=== PATIENT | male | born 1955 | race Asian ===

== ENCOUNTER 2020-05-07 13:48 | Outpatient (REF) | payer MEDICARE, SELFPAY | END 2020-05-07 13:49 | disposition home or self-care (01) | LOC: HO.LAB 13:48 | PROVIDERS: Visit Provider Internal Medicine | DX: Z20.822 Contact with and (suspected) exposure to COVID-19 (principal) | CPT/HCPCS: 36415; C9803; U0003 ==

== ENCOUNTER 2020-11-17 08:42 | Outpatient (REF) | payer MEDICARE, MEDICAID, SELFPAY ==
[2020-11-17 13:09] LABS: Prostate Specific Antigen 0.38 ng/mL (<0.05-4.0)
== END 2020-11-17 08:43 | disposition home or self-care (01) ==
LOC: HO.LAB 08:42
PROVIDERS: PCP Family Medicine; Visit Provider Family Medicine
DX: Z12.5 Encounter for screening for malignant neoplasm of prostate (principal)
CPT/HCPCS: 36415; 84153

== ENCOUNTER 2020-12-28 11:31 | Outpatient (REF) | payer MEDICARE, MEDICAID, SELFPAY ==
[2020-12-28 13:59] LABS: MANUAL DIFF FLAG NO
[2020-12-28 14:07] LABS: Basophils Absolute Auto 0.1 X10*3/uL (0.0-0.2); Eosinophils Absolute Auto 0.2 X10*3/uL (0.0-0.4); Eosinophils Percent Auto 2.7 % (0-4); Hemoglobin 15.1 g/dl (14.0-18.0); Imm Gran Abs Auto 0.04 X10*3/uL (0.00-0.03); Imm Gran Pct Auto 0.5 % (0.0-0.4); Lymphocytes Absolute Auto 3.5 X10*3/uL (1.2-4.9); Lymphocytes Percent Auto 39.8 % (20-40); Mean Corpuscular HGB Conc 32.1 g/dl (31.0-36.0); Mean Corpuscular Hemoglobin 24.4 pg (27.0-33.0); Mean Corpuscular Volume 75.8 fL (80-98); Monocytes Absolute Auto 0.7 X10*3/uL (0.1-1.2); Monocytes Percent Auto 8.4 % (2-11); Neutrophils Absolute Auto 4.1 X10*3/uL (2.0-8.3); Neutrophils Percent Auto 47.6 % (45-73); Platelet Count 171 X10*3/uL (160-400); Red Cell Distribution Width 17.8 % (11.0-16.0); White Blood Count 8.7 X10*3/uL (4.8-10.8)
[2020-12-28 14:10] LABS: INTERNATIONAL NORM RATIO 1.1 (0.9-1.1); Prothrombin Time 12.9 SEC (9.9-13.0)
[2020-12-28 14:39] LABS: Alanine Aminotransferase 50 U/L (0-40); Alkaline Phosphatase 91 U/L (39-117); Anion Gap 14 (12-20); Aspartate Amino Transferase 68 U/L (5-37); Bilirubin Total 1.1 mg/dL (0.0-1.0); Blood Urea Nitrogen 10 mg/dL (9-16); Calcium 9.7 mg/dL (8.4-10.2); Carbon Dioxide 24 mmol/L (22-29); Chloride 106 mmol/L (96-108); Estimated Glomerular Filt Rate > 60; Glucose Random 89 mg/dL (60-115); Iron 42 mcg/dL (45-160); Percent Iron Saturation 9 % (15-50); Potassium 4.9 mmol/L (3.3-5.1); Sodium 139 mmol/L (135-145); Total Iron Binding Capacity 462 mcg/dL (228-428); Total Protein 8.4 g/dL (6.5-8.0); Unsaturated Iron Binding 420 ug/dL
[2020-12-28 14:42] LABS: Ferritin 51 ng/mL (20-250)
[2020-12-29 09:03] LABS: HBS Num1 5.39 mIU/mL (0-7.99); HBc Num1 9.18 S/CO (0.00-0.79); HBsAGNum1 0.18 S/CO (0.00-0.99); Hepatitis B Surface Antigen Negative (Negative); ~HepC Num1 0.71 S/CO (0.00-0.79); ~Hepatitis B Surface Antibody NONREACTIVE (Nonreactive); ~Hepatitis C Antibody Nonreactive (Nonreactive)
[2020-12-29 11:34] LABS: HBc Num2 9.01 S/CO; HBc Num3 9.34 S/CO; Hepatitis B Core Antibody Reactive (Nonreactive)
[2020-12-29 13:35] LABS: Alpha 1 Anti-trypsin 139 mg/dL (83-199)
[2020-12-29 21:56] LABS: Anti Nuclear Antibody Screen POSITIVE (NEGATIVE)
[2020-12-30 19:22] LABS: Hepatitis B Core Antibody IgM NON-REACTIVE (NON-REACTIVE)
[2020-12-30 23:20] LABS: Immunoglobulin G Subclass 1 824 mg/dL (382-929); Immunoglobulin G Subclass 2 827 mg/dL (241-700); Immunoglobulin G Subclass 3 151 mg/dL (22-178); Immunoglobulin G Subclass 4 128.6 mg/dL (4-86); Immunoglobulin G Total 2005 mg/dL (600-1540)
[2020-12-31 16:41] LABS: Zinc 74 mcg/dL (60-130)
[2021-01-01 08:09] LABS: Hepatitis A Antibody IgM 0.39 Index (0-0.79); ~Hepatitis A Antibody IgM Nonreactive (Nonreactive)
[2021-01-01 15:11] LABS: Transglutaminase Ab IgG 6 U/mL; Transglutaminase IgA 1 U/mL
[2021-01-03 16:16] LABS: Smooth Muscle Antibody 23 U (<20)
[2021-01-05 10:31] LABS: Soluble Liver Ag Autoantibody <20.1 U (0.0-20.0)
[2021-01-07 13:36] LABS: Mitochondrial Antibodies NEGATIVE (NEGATIVE)
== END 2020-12-28 11:32 | disposition home or self-care (01) ==
LOC: HO.LAB 11:31
PROVIDERS: Referring Provider Family Medicine; Visit Provider Internal Medicine Gastroenterology
DX: K74.60 Unspecified cirrhosis of liver (principal); R79.82 Elevated C-reactive protein (CRP); G89.29 Other chronic pain; R10.33 Periumbilical pain; K52.839 Microscopic colitis, unspecified; K75.81 Nonalcoholic steatohepatitis (NASH)
CPT/HCPCS: 36415; 80053; 82103; 82306; 82728; 82784; 83516; 83520; 83540; 84630; 85025; 85610; 86038; 86039; 86255; 86256; 86704; 86705; 86706; 86709; 86803; 87340; 99202

== ENCOUNTER 2021-01-13 09:05 | Outpatient (REF) | payer MEDICARE, MEDICAID, SELFPAY ==
--- NOTE | ~2021-01-13 | US_ITS ---
EXAMINATION: US COMPLETE ABDOMEN WITH LIVER ELASTOGRAPHY CLINICAL INFORMATION: Cirrhosis. COMPARISON: None. TECHNIQUE: Real-time imaging of the abdominal viscera. Noninvasive ultrasound liver fibrosis assessment is performed using Martin ElastPQ point quantification shear wave elastography (pSWE) with a C5-2 MHz transducer. Multiple elastography samples are obtained. FINDINGS: PANCREAS: The visualized pancreatic head and body are heterogeneous in appearance. The remainder of the pancreas is obscured from visualization by the overlying bowel gas. The tail of the pancreas is obscured by overlying gas. ABDOMINAL AORTA: The proximal, middle, and distal aortic segments are normal in caliber. INFERIOR VENA CAVA: Visualized portions are normal. LIVER: The liver is normal size with irregular borders and coarse heterogeneous echotexture. No focal lesion or intrahepatic biliary duct dilatation. The right lobe measures 13.9 cm in length. The left lobe measures 12.2 cm in length. There is no focal lesion seen. Portal flow is antegrade. Shear wave liver elastography median stiffness is 1.69 m/s (reference: normal median stiffness is 1.3 m/s or less). IQR/median stiffness to assess sampling precision is 0.13 (reference: good quality data set is IQR/median stiffness of 0.15 or less). GALLBLADDER: There is sludge seen within the fundus. The gallbladder is physiologically distended without evidence of stones, sludge, polyps, wall thickening, or pericholecystic fluid. COMMON BILE DUCT: Normal in caliber measuring 0.36 cm in diameter. RIGHT KIDNEY: Normal. No hydronephrosis. No renal calculi or focal parenchymal lesions. The kidney measures 9.8 cm in maximum dimension. LEFT KIDNEY: Normal. No hydronephrosis. No renal calculi or focal parenchymal lesions. The kidney measures 9.7 cm in maximum dimension. SPLEEN: Normal. The spleen measures 9.8 cm in maximum dimension. FREE FLUID: None. US/US abdomen comp w elastography IMPRESSION: 1. Heterogeneous appearance of the pancreas without any focal lesion. The tail is not visualized. 2. Irregular coarse echotexture of liver. 3. Liver elastography: Median stiffness measures 1.69. This corresponds to cACLD ruled out. REFERENCE: Society of Radiologists in Ultrasound Liver Stiffness Thresholds (2019): LIVER STIFFNESS THRESHOLDS: *Liver Stiffness equal or less than 1.3 m/s: High probability of being normal. *Liver Stiffness less than 1.7 m/s: In the absence of other known clinical signs, rules out compensated advanced chronic liver disease. *Liver Stiffness 1.7-2.1 m/s: Suggestive of compensated advanced chronic liver disease but need further test for confirmation. *Liver Stiffness over 2.1 m/s: Rules in compensated advanced chronic liver disease. *Liver Stiffness over 2.4 m/s: Suggestive of clinically significant portal hypertension. QUALITY OF DATA SET: *IQR/Median value equal or less than 0.15 implies a quality data set. *IQR/Median value over 0.15 implies a poor quality data set. SIGNIFICANT CHANGE FROM PRIOR EXAM: Significant change if liver stiffness measurement is 10% or greater from prior exam. OTHER CONSIDERATIONS: The stage of liver fibrosis may be overestimated in the setting of acute hepatitis, liver inflammation, elevated liver function tests, hepatic vascular congestion, obstructive cholestasis, non-fasting state, and infiltrative diseases such as amyloidosis and lymphoma. In some patients with NAFLD, the liver stiffness thresholds for compensated advanced chronic liver disease may be lower. In causes other than viral hepatitis and NAFLD, liver stiffness thresholds are not well established.
== END 2021-01-13 09:06 | disposition home or self-care (01) ==
LOC: HO.US 09:05
PROVIDERS: PCP Nurse Practitioner Family; Visit Provider Family Medicine
DX: K70.30 Alcoholic cirrhosis of liver without ascites (principal)
CPT/HCPCS: 76705; 76981

== ENCOUNTER 2021-01-27 | Outpatient (REF) | payer MEDICARE, MEDICAID, SELFPAY ==
[2021-01-27 13:17] LABS: FIT Int Ctl YES
[2021-01-27 13:18] LABS: FIT2 NEGATIVE (NEGATIVE)
== END 2021-01-27 00:01 | disposition home or self-care (01) ==
LOC: HO.LNP
PROVIDERS: Visit Provider Internal Medicine Gastroenterology
DX: Z12.11 Encounter for screening for malignant neoplasm of colon (principal)
CPT/HCPCS: 82274

== ENCOUNTER 2021-08-27 11:51 | Day surgery (SDC) | payer MEDICARE, MEDICAID, SELFPAY ==
--- NOTE | 2021-08-26 12:20 | HO.ANESPROP2 ---
Documented by User: Maddie Lainez NP 08/26/21 12:24 HPI - Anesthesia Eval Consult details Narrative: 65yo M for Upper Endoscopy ETOH cirrhosis with current ETOH Cx'd 02/2021 for cough, fever PMFSH Active Problems Active Problems: All Active Problems (Updated 03/01/21 @ 15:47 by Eliza Rasmussen, PABLO) Cirrhosis (Acute) Colon cancer screening (Acute) Past Medical History Medical History (Updated 08/27/21 @ 12:50 by Brenda Dobbins RN) Alcohol dependence Cataract (lens) fragments in eye following cataract surgery, bilateral Cirrhosis Hx of ascites Surgical History Surgical History (Updated 03/02/21 @ 13:02 by Eliza Rasmussen RN) Surgical history unknown Social History Social History Patient Tobacco Use Status: Former Tobacco user Are you DNR?: No Advance Directives: Yes Advance Directives on File: Yes Advance Directives Date on File: 06/07/19 Recently lost weight without trying: No Nutrition Risks: No Nutritional Risk Meds Allergies Allergy/AdvReac Type Severity Reaction Status Date / Time No Known Allergies Allergy Unverified 08/23/21 13:06 [No Known Allergies*] Exam Exam Date and Time: August 26, 2021 1220 Pertinent Lab Results Pertinent Lab Results: Laboratory Tests 12/28/20 12/28/20 13:15 13:15 WBC 8.7 Hgb 15.1 Hct 47.0 Plt Count 171 Sodium 139 Potassium 4.9 Chloride 106 Carbon Dioxide 24 BUN 10 Creatinine 0.98 Assessment and Plan Assessment Anesthesia Assessment: Chart Reviewed Documented by User: Sabrina Cronin MD 08/27/21 13:07 PMFSH Past Medical History Medical History (Updated 08/27/21 @ 12:50 by Brenda Dobbins RN) Alcohol dependence Cataract (lens) fragments in eye following cataract surgery, bilateral Cirrhosis Hx of ascites Family History Family history of problems with anesthesia: No Surgical History Surgical History (Updated 03/02/21 @ 13:02 by Eliza Rasmussen RN) Surgical history unknown History of Problems with Anesthesia: No Social History Social History Patient Tobacco Use Status: Former Tobacco user Are you DNR?: No Advance Directives: Yes Advance Directives on File: Yes Advance Directives Date on File: 06/07/19 Recently lost weight without trying: No Nutrition Risks: No Nutritional Risk Meds Allergies Allergy/AdvReac Type Severity Reaction Status Date / Time No Known Allergies Allergy Unverified 08/23/21 13:06 [No Known Allergies*] Exam Airway Mallampati Class: II (Missing multiole teeth nothing loose) TM Dist: >3cm Neck ROM: Full Heart: rrr Lungs: cta Assessment and Plan Assessment Anesthesia Assessment: Anesthesia Plan Discussed and Chart Reviewed Final Anesthetic Review Family History of Problems with Anesthesia: No History of Problems with Anesthesia: No NPO: Yes ASA Class: III Final Preanesthetic Review: No Changes in Pt Med Stat, Meds/Allgs Chart Reviewed and Consent Obtained/Reviewed Patient Risk: Intermediate Procedure Risk: Intermediate Anesthetic Plan Anesthetic Plan: MAC: Disposition: Standard PACU
[2021-08-27] VITALS (7 sets, daily range): BP systolic 129–190; BP diastolic 83–115; PULSE 77–91; RESP 16–18; TEMP 36.6–37; O2SAT 95–97; BMI 21.1
--- NOTE | 2021-08-27 13:02 | MHC.SHP ---
Pre-Procedural Eval Section A Date of Service: 08/27/21 The patient is an INPATIENT: No The History & Physical has been completed within 30 days and I have reviewed it.: No Section B Chief Complaint: Cirrhosis, screen for varices Details of Present Illness: Cirrhosis - screen for varices Relevant Family History (Specify if Yes): No Relevant Social History: Tobacco Use (Former smoker) Present Medications: see Short Stay Collaborative assessment Medical History: Significant History (Alcohol dependence, Cirrhosis Hx of ascites) History of Previous Operations: No relevant previous surgery Allergies: Allergies Allergy/AdvReac Type Severity Reaction Status Date / Time No Known Allergies Allergy Unverified 08/23/21 13:06 [No Known Allergies*] Review of Systems Sugical H&P ROS: Negative: Constitution, Cardiovascular, Respiratory and Gastrointestinal Exam Surgical H&P Exam: Normal: Heart, Normal: Lungs, Normal: Extremities and Normal: Abdomen Plan Diagnosis/Plan: Unchanged I have reviewed the history and physical and performed a pertinent physical examination on my patient. No changes have occurred unless specified.
[2021-08-27] MEDS: Lactated Ringers 1,000 ML 100 ML IVCONT (13:27)
--- NOTE | 2021-08-27 14:15 | W.PM.OPN ---
Operative Note Operative Note Date of Service: 08/27/21 Narrative: Pre-op diagnosis: Cirrhosis - screen for varices Post-op diagnosis:?other (Esophageal varix, portal gastropathy, gastritis) Procedure: FLEXIBLE TRANSORAL UPPER GASTROINTESTINAL ENDOSCOPY WITH BIOPSIES Consent:?Indications for the procedure and potential complications of bleeding, perforation, reaction to medications and missed diagnosis were discussed with the patient and informed consent was obtained. Instrument:?Olympus GIF H 190 mid size upper endoscope Monitoring: Vital signs and clinical assessment, continuous EKG monitoring, Pulse oximetry, Carbon Dioxide monitoring and blood pressure monitoring were done throughout the procedure. Procedure:?The patient was placed in the left lateral decubitis position and pre-procedure medications were administered and a bite block was placed. The endoscope was inserted into the mouth and advanced under direct vision to the third part of duodenum. A careful inspection was made as the upper endoscope was withdrawn including a retroflexed examination of the proximal stomach; Findings and interventions are described below. Findings: Larynx:? Normal Esophagus: A single column grade 1 varix from 35 to 40 cms without high risk stigmata for bleeding. GE junction at 40 cms. No esophagitis or Craven's. Stomach: Mild portal hypertensive gastropathy in the fundus and body of the stomach. Mild gastric antral erythema - biopsies were obtained. No gastric varices and grade 2 flap valve on retroflexed examination of the cardia. Duodenum: Normal bulb and descending duodenum Intervention: Biopsies as noted above Impression and Post Procedure Diagnosis: Endoscopy Findings: ESOPHAGUS:? A single column grade 1 varix from 35 to 40 cms without high risk stigmata for bleeding. GE junction at 40 cms. No esophagitis or Craven's. STOMACH: Mild portal hypertensive gastropathy in the fundus and body of the stomach. Mild gastric antral erythema - biopsies were obtained. No gastric varices and grade 2 flap valve on retroflexed examination of the cardia. Plan: Await pathology results Patient has an appointment on 09/17/21 in the [facility] with Dr Cruz. Repeat EGD in 1 year?for FU of varices. Above findings were reviewed with the patient and Esophageal Varices handout was given in the discharge area Surgeon: Dionisio Sexton MD Anesthesia:?MAC (Ag[address]a [address],? 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 gastric antrum, R/O H. pylori) Condition:?stable Disposition:?PACU
== END 2021-08-27 16:00 | disposition home or self-care (01) ==
PROVIDERS: PCP Nurse Practitioner Family; Visit Provider Internal Medicine Gastroenterology
PROC: 0DJ08ZZ Inspection of Upper Intestinal Tract, Via Natural or Artificial Opening Endoscopic (ICD-10-PCS; CPT 43235; principal; 2021-08-27 13:40)
DX: K74.60 Unspecified cirrhosis of liver (principal); F10.20 Alcohol dependence, uncomplicated; I85.00 Esophageal varices without bleeding; K76.6 Portal hypertension; K29.50 Unspecified chronic gastritis without bleeding; B96.81 Helicobacter pylori [H. pylori] as the cause of diseases classified elsewhere; Z87.891 Personal history of nicotine dependence
CPT/HCPCS: 43239; 88305; 88342; J2250

== ENCOUNTER → 2021-09-17 10:44 | Outpatient (BNVA) | payer MEDICARE, MEDICAID, SELFPAY | PROVIDERS: PCP Nurse Practitioner Family; Visit Provider Internal Medicine Gastroenterology | DX: K74.60 Unspecified cirrhosis of liver (principal); Z98.890 Other specified postprocedural states | CPT/HCPCS: 99212 ==

== ENCOUNTER 2022-01-31 10:21 | Outpatient (REF) | payer MEDICARE, MEDICAID, SELFPAY ==
[2022-01-31 11:32] LABS: MANUAL DIFF FLAG NO
[2022-01-31 12:06] LABS: Basophils Absolute Auto 0.1 X10*3/uL (0.0-0.2); Basophils Percent Auto 2.6 % (0-2); Eosinophils Absolute Auto 0.3 X10*3/uL (0.0-0.4); Eosinophils Percent Auto 6.6 % (0-4); Hematocrit 50.9 % (42.0-52.0); Hemoglobin 16.5 g/dl (14.0-18.0); Imm Gran Abs Auto 0.01 X10*3/uL (0.00-0.03); Imm Gran Pct Auto 0.2 % (0.0-0.4); Lymphocytes Absolute Auto 1.8 X10*3/uL (1.2-4.9); Lymphocytes Percent Auto 41.2 % (20-40); Mean Corpuscular HGB Conc 32.4 g/dl (31.0-36.0); Mean Corpuscular Hemoglobin 25.5 pg (27.0-33.0); Mean Corpuscular Volume 78.7 fL (80.0-98.0); Mean Platelet Volume 10.4 fL (9.4-12.4); Monocytes Absolute Auto 0.5 X10*3/uL (0.1-1.2); Monocytes Percent Auto 12.2 % (2-11); Neutrophils Absolute Auto 1.6 x10*3/uL (2.0-8.3); Neutrophils Percent Auto 37.2 % (45-73); Platelet Count 159 X10*3/uL (160-400); Red Blood Count 6.47 X10*6/uL (4.60-5.80); Red Cell Distribution Width 14.2 % (11.0-16.0); White Blood Count 4.3 X10*3/uL (4.8-10.8)
[2022-01-31 12:53] LABS: Ferritin 96 ng/mL (20-250)
[2022-01-31 13:47] LABS: Folate 4.9 ng/mL (> or = 4.0); Vitamin B12 1172 pg/mL (200-900)
[2022-02-02 12:36] LABS: Immunoglobulin G 2246 mg/dL (600-1540)
[2022-02-02 15:48] LABS: Anti Nuclear Antibody Screen NEGATIVE (NEGATIVE)
[2022-02-03 23:57] LABS: Soluble Liver Ag Autoantibody <20.1 U (0.0-20.0)
[2022-02-04 13:06] LABS: Smooth Muscle Antibody <20 U (<20)
[2022-02-04 14:21] LABS: Vitamin A 20 mcg/dL (38-98)
[2022-02-04 17:22] LABS: Nicotinamide 29 ng/mL; Vit B3 - Nicotinic Acid <20 ng/mL
[2022-02-05 17:07] LABS: Vitamin B5 (Pantothenic Acid) <40 ng/mL (<275)
[2022-02-09 11:54] LABS: Vitamin B1 67 nmol/L (8-30)
[2022-02-11 11:16] LABS: Vitamin B6 22.3 ng/mL (2.1-21.7)
== END 2022-01-31 10:22 | disposition home or self-care (01) ==
LOC: HO.LAB 10:21
PROVIDERS: PCP Internal Medicine; Visit Provider Internal Medicine Gastroenterology
DX: K74.60 Unspecified cirrhosis of liver (principal); K52.839 Microscopic colitis, unspecified; K75.81 Nonalcoholic steatohepatitis (NASH); R79.82 Elevated C-reactive protein (CRP); F10.20 Alcohol dependence, uncomplicated; Z71.41 Alcohol abuse counseling and surveillance of alcoholic
CPT/HCPCS: 36415; 82607; 82728; 82746; 82784; 83520; 84207; 84425; 84590; 84591; 85025; 86015; 86038; 86039; 99212

== ENCOUNTER 2022-02-18 14:58 | Outpatient (REF) | payer MEDICARE, MEDICAID, SELFPAY ==
[2022-02-19 15:03] LABS: H Pylori Breath Test Negative (Negative)
== END 2022-02-18 14:59 | disposition home or self-care (01) ==
LOC: HO.LNP 14:58
PROVIDERS: Visit Provider Internal Medicine Gastroenterology
DX: R10.9 Unspecified abdominal pain (principal); A04.8 Other specified bacterial intestinal infections
CPT/HCPCS: 83013; Q3014

== ENCOUNTER 2022-10-03 19:40 | Emergency (ER) | payer MEDICARE, MEDICAID, SELFPAY ==
--- NOTE | ~2022-10-03 | CT_ITS ---
EXAMINATION: CT ABDOMEN AND PELVIS WITHOUT CONTRAST CLINICAL INFORMATION: Right upper quadrant/flank pain. COMPARISON: None available. TECHNIQUE: Multidetector volumetric imaging was performed from the superior aspect of the liver through the pubic symphysis. Sagittal and coronal reformatted images were obtained on the technologist's workstation. This CT examination was performed using dose optimization techniques as appropriate, variously including the following: *Automated exposure control *Adjustment of mA and/or kV according to patient size (this includes techniques or standardized protocols for targeted exams where dose is matched to indication/reason for exam; i.e. extremities or head) *Use of iterative reconstruction technique DLP: 376 mGy-cm FINDINGS: LUNG BASES: The visualized lung bases are unremarkable. LIVER, GALLBLADDER, AND BILIARY TREE: The liver is small, lobulated surface and heterogeneous density. No focal lesion or intrahepatic ductal dilatation seen. The gallbladder is distended but small radiopaque cyst dependent stones. No wall thickening seen. No intrahepatic or extrahepatic ductal dilatation. There are numerous varicose veins at the splenic hilum. PANCREAS: Unremarkable. SPLEEN: Unremarkable. ADRENAL GLANDS: Unremarkable. KIDNEYS AND URETERS: The kidneys are normal in size, shape, and attenuation. No hydronephrosis, hydroureter, or calculi seen. No perinephric stranding. BLADDER: Unremarkable. GASTROINTESTINAL TRACT: There is scattered stool and gas seen throughout the colon without any significant distention. The small bowel loops are normal caliber. Appendix is normal caliber. ABDOMINAL WALL: A very small umbilical hernia containing fat is noted. LYMPH NODES: Normal. VASCULAR: There is mild atherosclerotic calcification of abdominal aorta without aneurysmal dilatation. PELVIC VISCERA: Unremarkable. OSSEOUS STRUCTURES: No aggressive lytic or sclerotic process seen. Mildly indistinct changes with vacuum disc phenomena L5-S1 disc level. No aggressive lytic or sclerotic process seen. CT/CT abdomen pelvis wo IV con IMPRESSION: Distended gallbladder with small radiopaque dependent gallstones but no wall thickening. If patient has right upper quadrant pain a HIDA scan can be performed to evaluate acalculous cholecystitis. Cirrhosis with likely portal hypertension with collateral vessels in the splenic hilum. Mild constipation. Fleischner guidelines were followed.
--- NOTE | ~2022-10-03 | US_ITS ---
EXAMINATION: US ABDOMEN LIMITED CLINICAL INFORMATION: Abdominal pain with history of cirrhosis. COMPARISON: Ultrasound abdomen 01/13/[address] abdomen pelvis 05/31/2019 TECHNIQUE: Real-time imaging of the right upper quadrant abdominal viscera. FINDINGS: PANCREAS: Normal. LIVER: The liver is normal in size. The liver contour is normal. Liver echogenicity is coarse increased consistent with hepatic steatosis as has been seen in the past. No focal hepatic lesion. There is no intrahepatic biliary duct dilatation seen. GALLBLADDER: The gallbladder is distended at 13 cm but otherwise unremarkable without evidence of stones, sludge, polyps, wall thickening or pericholecystic fluid. COMMON BILE DUCT: Normal in caliber measuring 0.5 cm in diameter. RIGHT KIDNEY: No hydronephrosis. No renal calculi or focal parenchymal lesions. The kidney measures 10.9 cm in maximum dimension. FREE FLUID: None. US/US abdomen limited IMPRESSION: Hepatic steatosis.
--- NOTE | 2022-10-03 20:19 | ECG_ITS ---
Test Reason : ABDOMINAL PAIN Blood Pressure : / mmHG Vent. Rate : 059 BPM Atrial Rate : 059 BPM P-R Int : 182 ms QRS Dur : 088 ms QT Int : 422 ms P-R-T Axes : 049 041 043 degrees QTc Int : 417 ms Sinus bradycardia Otherwise normal ECG When compared with ECG of 02-SEP-2019 21:44, Vent. rate has decreased BY [address] no longer depressed in Anterior leads T wave inversion no longer evident in Inferior leads T wave inversion no longer evident in Anterior leads Referred By: Freddy Kline Electronically Signed By:RUPERT HAMEED
--- NOTE | 2022-10-03 20:21 | ED.GENADULT ---
HPI - General Adult General Chief complaint: Abdominal Pain Stated complaint: r abd pain,etoh use per ems Time Seen by Provider: 10/03/22 21:06 Related Data Home Medications Medication Instructions Recorded Confirmed pantoprazole 40 mg tablet,delayed 40 mg PO DAILY 01/31/22 release thiamine HCl (vitamin B1) 100 mg 100 mg PO DAILY 01/31/22 tablet (Vitamin B-1) Previous Rx's Medication Instructions Recorded oxycodone 5 mg tablet 5 mg PO BID PRN pain #7 tabs 10/04/22 Allergies Allergy/AdvReac Type Severity Reaction Status Date / Time No Known Allergies Allergy Unverified 01/31/22 10:27 [No Known Allergies*] [facility] Past Medical History Medical History Alcohol dependence Cataract (lens) fragments in eye following cataract surgery, bilateral Cirrhosis Hx of ascites Surgical History History of esophagogastroduodenoscopy (EGD) Surgical history unknown Social History Social History Alcohol intake: current Alcohol intake frequency: 3 or more drinks per day Alcohol type: beer Patient Tobacco Use Status: Former Tobacco user Smoked in Last 30 Days: No Use of substances other than those prescribed or required for medical reasons: No Advance Directives: No Advance Directives Information Provided: No Advance Directives Date on File: 06/07/19 Physical Exam ED Vital Signs: Vital Signs - 24 hr 10/03/22 20:24 10/03/22 22:28 10/03/22 23:38 Temperature 98.6 F 98.2 F Pulse Rate 62 76 68 Respiratory Rate 20 18 16 Blood Pressure 137/89 163/88 H Pulse Oximetry 100 97 95 Oxygen Delivery Method Room Air Room Air Room Air BMI result Body Mass Index 22.6 Course Course Course Narrative: 66-year-old male with past medical history significant for liver cirrhosis, vitiligo presents for evaluation of upper abdominal pain. Patient follows with Dr. Cruz. He reports significant abdominal pain and abdominal distension Medications Administered Discontinued Medications Generic Name Dose Route Start Last Admin Trade Name Freq PRN Reason Stop Dose Admin Morphine Sulfate 4 mg 10/04/22 00:28 10/04/22 00:42 Morphine Sulfate 4 Mg/Ml Cartridge IVPUSH 10/04/22 00:29 4 mg ONCE ONE Administration Protocol Medical Decision Making Medical Decision Making [facility] Narrative: -patient was given 4 mg of morphine. Patient states that he feels better. -admission was considered for possible HIDA scan. -After discussing the patient and imaging with Dr. Rivera. At this time, no need for HIDA scan, we do not suspect acute cholecystitis. Patient instructed to follow-up with surgery. Also, asked us with patient that if he continues having abdominal pain, anything changes, to return to the emergency room. Admission/Observation Consideration of admission/observation: Escalation of care including admission/observation considered Consult Healthcare Provider Management of the patient was discussed with: Manager Branch Lab Data [facility] Lab Attestation statement: I reviewed the patient's lab results. 10/03/22 20:46 10/03/22 20:46 Labs: Lab Results 10/03/22 10/03/22 10/03/22 Range/Units 20:46 20:46 20:46 WBC 4.5 L (4.8-10.8) X10*3/uL RBC 5.52 (4.60-5.80) X10*6/uL Hgb 14.9 (14.0-18.0) g/dl Hct 44.5 (42.0-52.0) % MCV 80.6 (80.0-98.0) fL MCH 27.0 (27.0-33.0) pg MCHC 33.5 (31.0-36.0) g/dl RDW 14.4 (11.0-16.0) % Plt Count 86 L D (160-400) X10*3/uL MPV 10.3 (9.4-12.4) fL Immature Gran % (Auto) 0.4 (0.0-0.4) % Neut % (Auto) 44.1 L (45-73) % Lymph % (Auto) 33.9 (20-40) % [place] % (Auto) 15.0 H (2-11) % Eos % (Auto) 5.1 H (0-4) % Baso % (Auto) 1.5 (0-2) % Lymph # (Auto) 1.5 (1.2-4.9) X10*3/uL [place] # (Auto) 0.7 (0.1-1.2) X10*3/uL Eos # (Auto) 0.2 (0.0-0.4) X10*3/uL Baso # (Auto) 0.1 (0.0-0.2) X10*3/uL Abs Immat Gran (auto) 0.02 (0.00-0.03) X10*3/uL Absolute Neuts (auto) 2.0 (2.0-8.3) x10*3/uL Absolute Nucleated RBC 0.000 (0.0-0.012) X10*3/uL Nucleated RBC % (auto) 0.0 (0.0-0.2) /100WBC Sodium 139 (135-145) mmol/L Potassium 3.9 D (3.3-5.1) mmol/L Chloride 104 (96-108) mmol/L Carbon Dioxide 20 L (22-29) mmol/L Anion Gap 19 (12-20) BUN 8 L (9-16) mg/dL Creatinine 0.80 (0.5-1.4) mg/dL Estim Creat Clear Calc 79.3 Estimated GFR > 60 Random Glucose 104 (60-115) mg/dL Calcium 9.5 (8.4-10.2) mg/dL Total Bilirubin 1.9 H (0.0-1.0) mg/dL AST 130 H (5-37) U/L ALT 82 H (0-40) U/L Alkaline Phosphatase 65 (39-117) U/L Total Protein 8.4 H (6.5-8.0) g/dL Albumin 3.9 (3.5-5.0) g/dL Lipase 57 (8-78) U/L Ethyl Alcohol 115 mg/dL Radiology Impression Discussion of test interpretation with radiology: I have reviewed the radiologist's reading. Radiologist Impression: FINDINGS: LUNG BASES: The visualized lung bases are unremarkable.? LIVER, GALLBLADDER, AND BILIARY TREE: The liver is small, lobulated surface and heterogeneous density. No focal lesion or intrahepatic ductal dilatation seen. The gallbladder is distended but small radiopaque cyst dependent stones. No wall thickening seen. No intrahepatic or extrahepatic ductal dilatation. There are numerous varicose veins at the splenic hilum. PANCREAS: Unremarkable.? SPLEEN: Unremarkable.? ADRENAL GLANDS: Unremarkable.? KIDNEYS AND URETERS: The kidneys are normal in size, shape, and attenuation. No hydronephrosis, hydroureter, or calculi seen. No perinephric stranding. ? BLADDER: Unremarkable.? GASTROINTESTINAL TRACT: There is scattered stool and gas seen throughout the colon without any significant distention. The small bowel loops are normal caliber. Appendix is normal caliber.? ABDOMINAL WALL: A very small umbilical hernia containing fat is noted. LYMPH NODES: Normal. VASCULAR: There is mild atherosclerotic calcification of abdominal aorta without aneurysmal dilatation. PELVIC VISCERA: Unremarkable.? OSSEOUS STRUCTURES: No aggressive lytic or sclerotic process seen. Mildly indistinct changes with vacuum disc phenomena L5-S1 disc level. No aggressive lytic or sclerotic process seen.? CT/CT abdomen pelvis wo IV con IMPRESSION: Distended gallbladder with small radiopaque dependent gallstones but no wall thickening. If patient has right upper quadrant pain a HIDA scan can be performed to evaluate acalculous cholecystitis. ? Cirrhosis with likely portal hypertension with collateral vessels in the splenic hilum. ? Mild constipation. FINDINGS: PANCREAS: Normal. LIVER: The liver is normal in size. The liver contour is normal. Liver echogenicity is coarse increased consistent with hepatic steatosis as has been seen in the past. No focal hepatic lesion. There is no intrahepatic biliary duct dilatation seen. GALLBLADDER: The gallbladder is distended at 13 cm but otherwise unremarkable without evidence of stones, sludge, polyps, wall thickening or pericholecystic fluid. COMMON BILE DUCT: Normal in caliber measuring 0.5 cm in diameter. RIGHT KIDNEY: No hydronephrosis. No renal calculi or focal parenchymal lesions. The kidney measures 10.9 cm in maximum dimension. FREE FLUID: None. US/US abdomen limited IMPRESSION: Hepatic steatosis ? Discharge Plan Discharge Clinical Impression: Abdominal pain Patient Disposition: Home, Self-Care Instructions: Abdominal Pain (ED) Additional Instructions: Please follow-up with your primary care physician tomorrow. If you have any worsening or new symptoms, please return to the emergency room or call 911 Prescriptions: New oxycodone 5 mg tablet 5 mg PO BID PRN (Reason: pain) Qty: 7 0RF Rx Instructions: Partial Fill upon patient request. No Action pantoprazole 40 mg tablet,delayed release (DR/EC) 40 mg PO DAILY thiamine HCl (vitamin B1) [Vitamin B-1] 100 mg tablet 100 mg PO DAILY
[2022-10-03 20:24] VITALS: BP 117/85; BP 137/89; PULSE 62; PULSE 85; RESP 20; TEMP 37; O2SAT 100; BMI 22.6
[2022-10-03 20:57] LABS: MANUAL DIFF FLAG NO
[2022-10-03 21:08] LABS: Basophils Absolute Auto 0.1 X10*3/uL (0.0-0.2); Basophils Percent Auto 1.5 % (0-2); Eosinophils Absolute Auto 0.2 X10*3/uL (0.0-0.4); Eosinophils Percent Auto 5.1 % (0-4); Hematocrit 44.5 % (42.0-52.0); Hemoglobin 14.9 g/dl (14.0-18.0); Imm Gran Abs Auto 0.02 X10*3/uL (0.00-0.03); Imm Gran Pct Auto 0.4 % (0.0-0.4); Lymphocytes Absolute Auto 1.5 X10*3/uL (1.2-4.9); Lymphocytes Percent Auto 33.9 % (20-40); Mean Corpuscular HGB Conc 33.5 g/dl (31.0-36.0); Mean Corpuscular Volume 80.6 fL (80.0-98.0); Mean Platelet Volume 10.3 fL (9.4-12.4); Monocytes Absolute Auto 0.7 X10*3/uL (0.1-1.2); Neutrophils Percent Auto 44.1 % (45-73); Red Blood Count 5.52 X10*6/uL (4.60-5.80); Red Cell Distribution Width 14.4 % (11.0-16.0); White Blood Count 4.5 X10*3/uL (4.8-10.8)
[2022-10-03 21:13] LABS: Ethanol 115 mg/dL
[2022-10-03 21:15] LABS: Alanine Aminotransferase 82 U/L (0-40); Albumin Level 3.9 g/dL (3.5-5.0); Alkaline Phosphatase 65 U/L (39-117); Anion Gap 19 (12-20); Aspartate Amino Transferase 130 U/L (5-37); Bilirubin Total 1.9 mg/dL (0.0-1.0); Blood Urea Nitrogen 8 mg/dL (9-16); Calcium 9.5 mg/dL (8.4-10.2); Carbon Dioxide 20 mmol/L (22-29); Chloride 104 mmol/L (96-108); Creatinine Clr Calc Pharmacy 79.3; Estimated Glomerular Filt Rate > 60; Glucose Random 104 mg/dL (60-115); Lipase 57 U/L (8-78); Potassium 3.9 mmol/L (3.3-5.1); Sodium 139 mmol/L (135-145); Total Protein 8.4 g/dL (6.5-8.0)
[2022-10-03 21:28] LABS: Platelet Count 86 X10*3/uL (160-400)
[2022-10-03 22:28] VITALS: PULSE 76; RESP 18; O2SAT 97
--- NOTE | 2022-10-03 23:24 | PC.NURSE ---
Assumed care of pt. Pt c/o generalized abdominal pain, pt sts believes it is gas pains, has been passing gas x past hour and sts has had some relief. Pt sts recently began drinking daily after long time without. No other complaints at this time.
[2022-10-03 23:38] VITALS: BP 163/88; PULSE 68; RESP 16; TEMP 36.8; O2SAT 95
--- NOTE | 2022-10-03 23:39 | MHC.EDTECH ---
0000 rounding done ,vitals sign taken ,pt resting quietlt in bed .
[2022-10-04] MEDS: Morphine Sulfate 4 MG/ML CARTRIDGE IVPUSH (00:42)
[2022-10-04 01:19] VITALS: BP 159/89; PULSE 74; RESP 18; O2SAT 97
== END 2022-10-04 01:25 | disposition home or self-care (01) ==
PROVIDERS: Physician Assistant; Emergency Provider Emergency Medicine; PCP Internal Medicine
DX: R10.31 Right lower quadrant pain (principal); R00.1 Bradycardia, unspecified; Z87.891 Personal history of nicotine dependence; Z79.899 Other long term (current) drug therapy
CPT/HCPCS: 36415; 74176; 76705; 80053; 80307; 83690; 85025; 93005; 96374; 99284; 99285; J2270

== ENCOUNTER 2023-06-30 13:46 | Emergency (ER) | payer MEDICARE, MEDICAID, SELFPAY ==
--- NOTE | ~2023-06-30 | XR_ITS ---
EXAMINATION: XR CHEST CLINICAL INFORMATION: Chest pain COMPARISON: Previous chest x-ray August 2019 TECHNIQUE: Frontal view of the chest was obtained. FINDINGS: No significant abnormality is noted involving the heart, lungs, mediastinum, bony thorax or soft tissues. XR/XR chest 1V IMPRESSION: Unremarkable examination.
[2023-06-30 14:06] VITALS: BP 145/87; PULSE 66; RESP 16; TEMP 36.9; O2SAT 94; BMI 20.6
--- NOTE | 2023-06-30 14:37 | ECG_ITS ---
Test Reason : CHEST PAIN Blood Pressure : / mmHG Vent. Rate : 062 BPM Atrial Rate : 062 BPM P-R Int : 196 ms QRS Dur : 088 ms QT Int : 432 ms P-R-T Axes : 027 007 025 degrees QTc Int : 438 ms Normal sinus rhythm Normal ECG When compared with ECG of 03-OCT-2022 20:22, No significant change was found Referred By: Tonie Triana Electronically Signed By:QUOC PENG MD
--- NOTE | 2023-06-30 14:46 | ED_ITS ---
HPI - Chest Pain General Chief Complaint: Chest Pain Stated Complaint: CHEST PAIN Time Seen by Provider: 06/30/23 14:34 History of Present Illness HPI narrative: Patient is a 67-year-old male presents today with having chest pain. The chest pain is mid chest. He drinks on a regular basis. Admits to drinking alcohol earlier today and also yesterday. There is no shortness of breath. There has no diaphoresis. Positive history of smoking quit about 10 years ago. No history of diabetes, high blood pressure, high cholesterol. Never had a heart attack. Patient is from home. No focal weakness. The pain has been fairly constant since this morning. It is not reproducible. It is like burning. It is not associated with ambulation. It is not associated with sitting up. It is made worse with lying down. Patient denies any history of blood clots. No travel history. Not made worse with deep breath. Related Data Home Medications Medication Instructions Recorded Confirmed pantoprazole 40 mg tablet,delayed 40 mg PO DAILY 01/31/22 release thiamine HCl (vitamin B1) 100 mg 100 mg PO DAILY 01/31/22 tablet (Vitamin B-1) Previous Rx's Medication Instructions Recorded oxycodone 5 mg tablet 5 mg PO BID PRN pain #7 tabs 10/04/22 Allergies Allergy/AdvReac Type Severity Reaction Status Date / Time No Known Allergies Allergy Unverified 01/31/22 10:27 [No Known Allergies*] Review of Systems 2 Review of Systems: Positive chest pain Yes all other systems are reviewed and are negative PMFSH Past Medical History Attestation statement: The following information was validated with the patient. Source: unable to obtain Medical History Cataract (lens) fragments in eye following cataract surgery, bilateral Hx of ascites Alcohol dependence Cirrhosis Surgical History History of esophagogastroduodenoscopy (EGD) Surgical history unknown Social History Social History Alcohol intake: current Alcohol intake frequency: 3 or more drinks per day Alcohol type: beer Patient Tobacco Use Status: Former Tobacco user Advance Directives: No Advance Directives Information Provided: Yes Advance Directives Date on File: 06/07/19 Physical Exam 2 Vital Signs: Vital Signs: Last Vital Signs Temp 98.5 F 06/30/23 14:06 Pulse 66 06/30/23 14:06 Resp 16 06/30/23 14:06 BP 145/87 H 06/30/23 14:06 Pulse Ox 94 06/30/23 14:06 BMI result Body Mass Index 20.6 Appearance: Alert. Oriented X3. No acute distress. Eyes: Pupils equal, round and reactive to light. ENT: Pharynx normal. Neck: Normal inspection. Neck supple. No lymph nodes noted. No crepitus CVS: Normal heart rate and rhythm. Pulses normal. Normal S1 and S2 Respiratory: No respiratory distress. Breath sounds normal. No Wheezing. No rales Abdomen: Soft and nontender. No rigidity. No distention. good BS x4 Skin: Skin warm and dry. Normal skin color. Normal skin turgor. Extremities: No lower extremity edema. Neurovascular intact to all extremities. No Lacerations. No Rash Neuro: Oriented X 3. No motor deficit. No sensory deficit. Moving all extermities. No slurred speech Medications Administered Discontinued Medications Generic Name Dose Route Start Last Admin Trade Name Freq PRN Reason Stop Dose Admin Al Hydroxide/Mg Hydroxide 30 ml 06/30/23 14:44 06/30/23 15:45 Magnesium Hydrox/Alum Hydrox 30 Ml Oral.Susp PO 06/30/23 14:45 30 ml ONCE ONE Administration Aspirin 324 mg 06/30/23 14:44 06/30/23 15:44 Aspirin 81 Mg Tab.Chew PO 06/30/23 14:45 324 mg ONCE ONE Administration Medical Decision Making Medical Decision Making [facility] Narrative: Positive chest pain burning mid chest not associated with any shortness of breath. Patient's alcohol level came back at 279. Has a long history of drinking. Patient's chest pain has been ongoing since this morning. First set of troponin is still pending. Patient's electrolytes are otherwise unremarkable hemoglobin is normal. Will get 2 sets of enzymes and monitor patient carefully. Patient's chest x-ray was grossly negative for any acute evidence of pneumonia pneumothorax. My interpretation patient's EKG showed a sinus rhythm heart rate is 75 NE QRS QTC within normal limits is no acute ST segment elevation. In the setting of atypical history, normal EKG it troponin is leg negative x2 sat less likely this is secondary to ACS. Patient's history not consistent with PE. Differential Diagnosis Differential Diagnoses: The differential diagnosis associated with the presentation includes Alcohol intoxication, reflux, ACS, PE Admission/Observation Consideration of admission/observation: Escalation of care including admission/observation considered Lab Data MDM Lab Attestation statement: I reviewed the patient's lab results. 06/30/23 15:33 06/30/23 15:33 Labs: Lab Results 06/30/23 06/30/23 Range/Units 15:25 15:33 WBC 3.3 L (4.8-10.8) X10*3/uL RBC 5.67 (4.60-5.80) X10*6/uL Hgb 15.5 (14.0-18.0) g/dl Hct 45.7 (42.0-52.0) % MCV 80.6 (80.0-98.0) fL MCH 27.3 (27.0-33.0) pg MCHC 33.9 (31.0-36.0) g/dl RDW 14.6 (11.0-16.0) % Plt Count 105 L (160-400) X10*3/uL MPV 9.4 (9.4-12.4) fL Immature Gran % (Auto) 0.3 (0.0-0.4) % Neut % (Auto) 32.2 L (45-73) % Lymph % (Auto) 52.3 H (20-40) % [place] % (Auto) 10.5 (2-11) % Eos % (Auto) 2.5 (0-4) % Baso % (Auto) 2.2 H (0-2) % Lymph # (Auto) 1.7 (1.2-4.9) X10*3/uL [place] # (Auto) 0.3 (0.1-1.2) X10*3/uL Eos # (Auto) 0.1 (0.0-0.4) X10*3/uL Baso # (Auto) 0.1 (0.0-0.2) X10*3/uL Abs Immat Gran (auto) 0.01 (0.00-0.03) X10*3/uL Absolute Neuts (auto) 1.1 L (2.0-8.3) x10*3/uL Absolute Nucleated RBC 0.000 (0.0-0.012) X10*3/uL Nucleated RBC % (auto) 0.0 (0.0-0.2) /100WBC PT 13.2 (11.1-13.3) SEC Whole Blood PT 14.1 H (11.1-13.5) sec INR 1.1 (0.9-1.1) Whole Blood INR 1.2 H (0.9-1.1) Sodium 143 (135-145) mmol/L Potassium 3.8 (3.3-5.1) mmol/L Chloride 108 (96-108) mmol/L Carbon Dioxide 22 (22-29) mmol/L Anion Gap 17 (12-20) BUN 6 L (9-16) mg/dL Creatinine 0.69 (0.5-1.4) mg/dL Estim Creat Clear Calc 82.8 Estimated GFR > 60 Random Glucose 92 (60-115) mg/dL Calcium 8.8 D (8.4-10.2) mg/dL Ethyl Alcohol 279 mg/dL Independent Interpretation I performed an independent interpretation of an: EKG (EKG showed a sinus pattern heart rate is 75 NE QRS QTC within normal limits is no acute ST segment elevation noted.) and Plain X-Ray (Chest x-ray grossly negative for any acute evidence of pneumonia pneumothorax) Radiology Impression Discussion of test interpretation with radiology: I have reviewed the radiologist's reading. External Record Review No significant old records here at [facility] History of smoking history of EtOH Social Determinants Patient?s care significantly limited by Social Determinants of Health including: Problems related to primary support group Discharge Plan Discharge Clinical Impression: Chest pain, Alcohol intoxication Patient Disposition: Still a Patient Instructions: Chest Pain (DC), Alcohol Intoxication (ED) Prescriptions: No Action oxycodone 5 mg tablet 5 mg PO BID PRN (Reason: pain) Qty: 7 0RF Rx Instructions: Partial Fill upon patient request. pantoprazole 40 mg tablet,delayed release (DR/EC) 40 mg PO DAILY thiamine HCl (vitamin B1) [Vitamin B-1] 100 mg tablet 100 mg PO DAILY Referrals: Merrill Campuzano MD [Physician] - 07/03/23 Dorina De Los Santos MD [Primary Care Provider] -
[2023-06-30 15:29] LABS: Prothrombin Time Whole Bld POC 14.1 sec (11.1-13.5); ~PT, ~INR - Anti Coag Clinic 1.2 (0.9-1.1)
[2023-06-30 15:39] LABS: MANUAL DIFF FLAG NO
[2023-06-30] MEDS: Aspirin 81 MG TAB.CHEW 324 MG PO (15:44)
[2023-06-30] MEDS: Magnesium Hydrox/Alum Hydrox 30 ML ORAL.SUSP PO (15:45)
[2023-06-30 15:46] LABS: Basophils Absolute Auto 0.1 X10*3/uL (0.0-0.2); Basophils Percent Auto 2.2 % (0-2); Eosinophils Absolute Auto 0.1 X10*3/uL (0.0-0.4); Eosinophils Percent Auto 2.5 % (0-4); Hematocrit 45.7 % (42.0-52.0); Hemoglobin 15.5 g/dl (14.0-18.0); Imm Gran Abs Auto 0.01 X10*3/uL (0.00-0.03); Imm Gran Pct Auto 0.3 % (0.0-0.4); Lymphocytes Absolute Auto 1.7 X10*3/uL (1.2-4.9); Lymphocytes Percent Auto 52.3 % (20-40); Mean Corpuscular HGB Conc 33.9 g/dl (31.0-36.0); Mean Corpuscular Hemoglobin 27.3 pg (27.0-33.0); Mean Corpuscular Volume 80.6 fL (80.0-98.0); Mean Platelet Volume 9.4 fL (9.4-12.4); Monocytes Absolute Auto 0.3 X10*3/uL (0.1-1.2); Monocytes Percent Auto 10.5 % (2-11); Neutrophils Absolute Auto 1.1 x10*3/uL (2.0-8.3); Neutrophils Percent Auto 32.2 % (45-73); Platelet Count 105 X10*3/uL (160-400); Red Blood Count 5.67 X10*6/uL (4.60-5.80); Red Cell Distribution Width 14.6 % (11.0-16.0); White Blood Count 3.3 X10*3/uL (4.8-10.8)
--- NOTE | 2023-06-30 15:47 | PC.NURSE ---
Resumed care of patient at 1500, pt reporting continued 11/24 CP, Meds given per JUN, p remains on monitor, awaiting lab results at this time
[2023-06-30 15:54] LABS: Ethanol 279 mg/dL
[2023-06-30 15:56] LABS: Anion Gap 17 (12-20); Blood Urea Nitrogen 6 mg/dL (9-16); Calcium 8.8 mg/dL (8.4-10.2); Carbon Dioxide 22 mmol/L (22-29); Chloride 108 mmol/L (96-108); Creatinine Clr Calc Pharmacy 82.8; Estimated Glomerular Filt Rate > 60; Glucose Random 92 mg/dL (60-115); Potassium 3.8 mmol/L (3.3-5.1); Sodium 143 mmol/L (135-145)
[2023-06-30 15:58] LABS: INTERNATIONAL NORM RATIO 1.1 (0.9-1.1); Prothrombin Time 13.2 SEC (11.1-13.3)
[2023-06-30 16:09] LABS: Troponin-I High Sensitivity < 2.7 ng/L (<3.5-35.0)
[2023-06-30 17:49] VITALS: BP 136/84; PULSE 74; RESP 14; TEMP 37; O2SAT 100
== END 2023-06-30 17:50 | disposition home or self-care (01) ==
PROVIDERS: Emergency Provider Emergency Medicine Emergency Medical Services; PCP Internal Medicine
DX: R07.9 Chest pain, unspecified (principal); F10.229 Alcohol dependence with intoxication, unspecified; Y90.8 Blood alcohol level of 240 mg/100 ml or more
CPT/HCPCS: 36415; 71045; 80048; 80307; 84484; 85025; 85610; 93005; 99283; 99285

== ENCOUNTER → 2023-06-30 14:37 | Outpatient (BNV) | payer MEDICARE, MEDICAID, SELFPAY | PROVIDERS: Emergency Provider Emergency Medicine Emergency Medical Services; PCP Internal Medicine; Visit Provider Internal Medicine Cardiovascular Disease | DX: R07.9 Chest pain, unspecified (principal) | CPT/HCPCS: 93010 ==

== ENCOUNTER 2023-08-13 21:23 | Inpatient (IN) | payer MEDICARE, MEDICAID, SELFPAY ==
--- NOTE | ~2023-08-13 | CT_ITS ---
EXAMINATION: HEAD CT WITHOUT CONTRAST CERVICAL SPINE CT WITHOUT CONTRAST CLINICAL INFORMATION: Change in mental status. Found down. Unresponsive. COMPARISON: None. TECHNIQUE: Contiguous axial imaging of the head was performed without the administration of IV contrast. Axial multidetector volumetric images were also performed through the cervical spine without intravenous contrast. Multiplanar reconstructed images in coronal and sagittal orientations were submitted. This CT examination was performed using dose optimization techniques as appropriate, variously including the following: *Automated exposure control *Adjustment of mA and/or kV according to patient size (this includes techniques or standardized protocols for targeted exams where dose is matched to indication/reason for exam; i.e. extremities or head) *Use of iterative reconstruction technique DOSE: 953 mGy-cm FINDINGS: HEAD: There is no evidence of acute intracranial hemorrhage or territorial infarction. No abnormal mass-effect or midline shift. No extra-axial fluid collections. [place] to white matter differentiation is well preserved. The ventricles are normal in size and configuration. There is no abnormal attenuation within the brain parenchyma. Calcific atherosclerosis is present within the cavernous segments of the internal carotid arteries. No acute fracture or malalignment. There is a small 7 mm cystic focus in the skin at the left supraorbital rim which is of uncertain etiology, potentially corresponding to a epidermal inclusion cyst. Soft tissues are otherwise unremarkable. The sinuses and mastoid air cells are clear. CERVICAL SPINE: Vertebral body heights are normal. No fractures of the vertebral bodies or posterior elements. Vertebral alignment is normal. No subluxation. The craniocervical and atlantoaxial articulations are normal. Mild to moderate multilevel degenerative disc disease is present in the cervical spine, most notably at C7-T1, characterized by loss of vertebral disc height, endplate osteophytes, uncovertebral osteophytes. There is moderate severe facet arthropathy on the right at C3-C4. Posterior disc osteophyte complexes produce mild multilevel central canal narrowing. Uncovertebral osteophytes and facet osteophytes contribute to multilevel neural foraminal encroachment, most notably on the right at C3-C4, C5-C6, and C6-C7 and on the left at C4-C5 and C5-C6. No significant paravertebral soft tissue swelling. Cervical soft tissues are unremarkable. Imaged portions of the lung apices are clear. CT/CT cervical spine wo IV con IMPRESSION: 1. No acute intracranial pathology. 2. No acute fracture or malalignment in the cervical spine. 3. Mild to moderate multilevel degenerative spondylosis in the cervical spine with multilevel neural foraminal encroachment
--- NOTE | ~2023-08-13 | CT_ITS ---
EXAMINATION: CT CHEST WITHOUT CONTRAST CT ABDOMEN AND PELVIS WITHOUT CONTRAST CLINICAL INFORMATION: Altered mental status. COMPARISON: CT dated 10/03/2022. TECHNIQUE: Multidetector volumetric imaging was performed from the thoracic inlet through the pubic symphysis without contrast demonstrated. Sagittal and coronal images were reformatted. This CT examination was performed using dose optimization techniques as appropriate, variously including the following: *Automated exposure control *Adjustment of mA and/or kV according to patient size (this includes techniques or standardized protocols for targeted exams where dose is matched to indication/reason for exam; i.e. extremities or head) *Use of iterative reconstruction technique DOSE: 882 mGy-cm FINDINGS: -CHEST- LUNG: Dependent atelectasis is present in the lung bases. No consolidation. No appreciable noncalcified pulmonary nodules. A few calcified granulomas are noted. Central airways are clear. MEDIASTINUM: Atherosclerotic calcifications are present in the coronary arteries. Heart is normal in size. A few calcified mediastinal lymph nodes are noted. No adenopathy. Thoracic aorta is normal in caliber with a few foci of calcific atherosclerosis. Thyroid gland is normal. PERICARDIUM/PLEURA: No significant effusion. No pleural mass or thickening. CHEST WALL/AXILLA: Unremarkable. -ABDOMEN/PELVIS- LIVER, GALLBLADDER, BILIARY TREE: The liver has a nodular contour with relative hypertrophy of the left lobe, consistent with cirrhosis. No hepatomegaly. No focal lesions are identified on this unenhanced study. Biliary ducts are normal in caliber. The gallbladder is unremarkable with no evidence of radiopaque gallstones, gallbladder wall thickening, or obvious pericholecystic inflammatory changes. PANCREAS: Normal; no mass or surrounding fluid. SPLEEN: Normal size. No focal lesion. ADRENAL GLANDS: Normal; no mass. KIDNEYS AND URETERS: The kidneys are normal in size, shape, and attenuation. No hydronephrosis, hydroureter, or calculi seen. No perinephric stranding. BLADDER: Full. Normal bladder wall thickness. GASTROINTESTINAL TRACT: Stomach, small bowel, and colon are normal in caliber. No bowel wall thickening or surrounding inflammatory changes. Appendix is normal. No intraperitoneal free fluid or free air. ABDOMINAL WALL: There is a small fat-containing umbilical hernia. No bowel involvement. VASCULATURE: Aorta is normal in size. Atherosclerotic calcifications are present in the abdominal aorta and iliac arteries. No aneurysmal dilatation. The there is a recanalized periumbilical vein. Sensitivity for portosystemic collaterals is limited without intravenous contrast. LYMPH NODES: No lymphadenopathy. . PELVIC VISCERA: The prostate and seminal vesicles are unremarkable. OSSEUS STRUCTURES: Bilateral L5 pars defects. Mild grade 1 anterolisthesis of L5 on S1. Mild degenerative disc disease in the lumbar spine. No acute fracture or malalignment. Minimal osteoarthritis in the hip joints. Thoracic spine appears relatively well-preserved. CT/CT abdomen pelvis wo IV con IMPRESSION: 1. No acute abnormalities are identified in the chest, abdomen, and pelvis. 2. Hepatic cirrhosis. 3. Small fat-containing umbilical hernia. 4. Bilateral L5 pars defects with grade 1 anterolisthesis of L5 on S1.
[2023-08-13 21:25] VITALS: BP 174/93; PULSE 85; O2SAT 95
[2023-08-13 21:32] VITALS: BP 172/101; PULSE 83; RESP 18; O2SAT 92; BMI 20.8
--- NOTE | 2023-08-13 21:36 | ECG_ITS ---
Test Reason : UNRESPONSIVE Blood Pressure : / mmHG Vent. Rate : 085 BPM Atrial Rate : 085 BPM P-R Int : 202 ms QRS Dur : 090 ms QT Int : 376 ms P-R-T Axes : 023 015 042 degrees QTc Int : 447 ms Normal sinus rhythm Normal ECG When compared with ECG of 30-JUN-2023 15:18, No significant change was found Referred By: Maggie Mcmillan Electronically Signed By:RUPERT HAMEED
--- NOTE | 2023-08-13 21:50 | ED.AMS ---
HPI - Altered Mental Status General Chief Complaint: Weakness Stated Complaint: AMS,DRINKING HEAVY X FEW DAYS, SCLERA ARE JAUNDICE Time Seen by Provider: 08/13/23 21:29 Source: EMS and old records reviewed Mode of arrival: EMS Limitations: altered mental status History of Present Illness HPI narrative: 67 yo male with PMH of cirrhosis, ETOH abuse - EMS was called today by family who reported recent heavy ETOH abuse and patient found down unknown duration of downtime and EMS notes they had a hard time obtaining history. He has striations on his abdomen from cultural treatments at home. Reportedly fell numerous times at home. MD complaint: altered mental status and intoxication Onset (ago): unknown Timing confirmed by: family member Severity: severe Consistency of symptoms: unknown Context: alcohol abuse Associated symptoms: weakness and other (falls) Treatments prior to arrival: other (cervical collar) Related Data Home Medications ?Medication ?Instructions ?Recorded ?Confirmed pantoprazole 40 mg tablet,delayed 40 mg PO DAILY 01/31/22 release thiamine HCl (vitamin B1) 100 mg 100 mg PO DAILY 01/31/22 tablet (Vitamin B-1) Previous Rx's ?Medication ?Instructions ?Recorded oxycodone 5 mg tablet 5 mg PO BID PRN pain #7 tabs 10/04/22 Allergies Allergy/AdvReac Type Severity Reaction Status Date / Time No Known Allergies Allergy Unverified 08/13/23 21:33 [No Known Allergies*] Review of Systems Review of Systems: ROS unable to be obtained due to altered mental status PMFSH Past Medical History Source: old records reviewed Medical History Cataract (lens) fragments in eye following cataract surgery, bilateral Hx of ascites Alcohol dependence Cirrhosis Surgical History History of esophagogastroduodenoscopy (EGD) Surgical history unknown Social History Social History Alcohol intake: current Alcohol intake frequency: 3 or more drinks per day Alcohol type: beer Patient Tobacco Use Status: Former Tobacco user Use of substances other than those prescribed or required for medical reasons: No Advance Directives: No Advance Directives Information Provided: No Advance Directives Date on File: 06/07/19 Do you have a plan to hurt others: No Plan Physical Exam ED Vital Signs: Vital Signs - 24 hr 08/13/23 21:32 08/13/23 22:14 Temperature 98.5 F Pulse Rate 83 90 Respiratory Rate 18 19 Blood Pressure 172/101 H 152/95 H Pulse Oximetry 92 95 Oxygen Delivery Method Room Air Room Air Oxygen Flow Rate 95 BMI result Body Mass Index 20.8 Appearance: Wakes to voice and tactile stimuli on all extremities mild. acute distress. Eyes: Pupils equal, round and reactive to light. ENT: Pharynx normal. Atraumatic Neck: Normal inspection. Neck supple. CVS: Normal heart rate and rhythm. Pulses normal. Respiratory: No respiratory distress. Breath sounds normal. Abdomen: Soft and nontender. linear patterned striations on chest and abdomen Skin: Skin warm and dry. Normal skin color. Diffuse vitiligo Extremities: No lower extremity edema. No trauma noted Neuro: moves all extremities but otherwise cannot participate in exam. Course Course Course Narrative: lactic acidosis due to ETOH abuse and chronic liver disease not infection or severe sepsis Reevaluation(s) Reevaluation #1: 1112pm patient awake and asking when he is going home Medications Administered Discontinued Medications Generic Name Dose Route Start Last Admin Trade Name Freq PRN Reason Stop Dose Admin Magnesium Sulfate 2 gm in 50 mls @ 25 mls/hr 08/13/23 21:36 08/13/23 21:54 Magnesium Sulfate/H2o IV 08/13/23 23:35 25 mls/hr ONCE ONE Administration Thiamine HCl 200 mg/ Sodium 102 mls @ 204 mls/hr 08/13/23 21:36 08/13/23 22:27 Chloride IV 08/13/23 22:05 Infused ONCE ONE Infusion Sodium Chloride 500 mls @ 500 mls/hr 08/13/23 22:15 08/13/23 22:27 Ns IV 08/13/23 23:14 500 mls/hr .Q1H RENY Administration Medical Decision Making Medical Decision Making MDM Narrative: 67 yo male with PMH of cirrhosis, ETOH abuse here with c/o being found down by family after ETOH and repeated falls at home at this time he wakes to voice and tactile stimuli will obtain basic labs, cultures, infl markers, CT scan of head/neck/chest and abdomen for trauma. IV thiamine, magnesium ordered. Ammonia level ordered. Differential Diagnosis Differential Diagnoses: The differential diagnosis associated with the presentation includes intoxication, trauma, lyte disturbance, hepatic encephalopathy, anemia, low Na Admission/Observation Consideration of admission/observation: Escalation of care including admission/observation considered given falls, elevated ammonia from baseline, will need admission for hepatic encephalopathy - recurrent falls and off baseline Consult Healthcare Provider Management of the patient was discussed with: Hospitalist (will admit) Lab Data MDM Lab Attestation statement: I reviewed the patient's lab results. 08/13/23 21:50 08/13/23 21:49 Labs: Lab Results 08/13/23 08/13/23 08/13/23 Range/Units 21:47 21:48 21:49 WBC (4.8-10.8) X10*3/uL RBC (4.60-5.80) X10*6/uL Hgb (14.0-18.0) g/dl Hct (42.0-52.0) % MCV (80.0-98.0) fL MCH (27.0-33.0) pg MCHC (31.0-36.0) g/dl RDW (11.0-16.0) % Plt Count (160-400) X10*3/uL MPV (9.4-12.4) fL Immature Gran % (Auto) (0.0-0.4) % Neut % (Auto) (45-73) % Lymph % (Auto) (20-40) % [place] % (Auto) (2-11) % Eos % (Auto) (0-4) % Baso % (Auto) (0-2) % Lymph # (Auto) (1.2-4.9) X10*3/uL [place] # (Auto) (0.1-1.2) X10*3/uL Eos # (Auto) (0.0-0.4) X10*3/uL Baso # (Auto) (0.0-0.2) X10*3/uL Abs Immat Gran (auto) (0.00-0.03) X10*3/uL Absolute Neuts (auto) (2.0-8.3) x10*3/uL Absolute Nucleated RBC (0.0-0.012) X10*3/uL Nucleated RBC % (auto) (0.0-0.2) /100WBC PT 12.3 (11.1-13.3) SEC INR 1.0 (0.9-1.1) APTT 32.9 (26.0-36.8) SEC VBG pH (7.32-7.43) VBG pCO2 mmHg VBG pO2 mmHg VBG HCO3 (22-26) mmol/L VBG O2 Saturation % VBG Base Excess mmol/L Sodium 141 (135-145) mmol/L Potassium 3.3 (3.3-5.1) mmol/L Chloride 106 (96-108) mmol/L Carbon Dioxide 24 (22-29) mmol/L Anion Gap 14 (12-20) BUN 10 (9-16) mg/dL Creatinine 0.79 (0.5-1.4) mg/dL Estim Creat Clear Calc 73.1 Estimated GFR > 60 Random Glucose 183 H (60-115) mg/dL Lactic Acid 2.4 H* (0.5-2.0) mmol/L Calcium 8.4 (8.4-10.2) mg/dL Magnesium 1.9 (1.6-2.6) mg/dL Total Bilirubin 1.0 (0.0-1.0) mg/dL Direct Bilirubin 0.4 (0.0-0.5) mg/dL AST 124 H (5-37) U/L ALT 80 H (0-40) U/L Alkaline Phosphatase 97 (39-117) U/L Ammonia 71 H (13-55) umol/L Total Creatine Kinase 206 H (38-174) U/L Troponin I High Sens < 2.7 (<3.5-35.0) ng/L B-Natriuretic Peptide < 10 (<100) pg/mL Total Protein 8.1 H (6.5-8.0) g/dL Albumin 3.8 (3.5-5.0) g/dL Lipase 61 (8-78) U/L Procalcitonin 0.02 ng/mL TSH 1.56 (0.32-4.0) uIU/mL Urine Color Urine Appearance Urine pH (5.0-9.0) Ur Specific [place] (1.005-1.025) Urine Protein (Neg-Trace) mg/dL Urine Glucose (UA) (Negative) mg/dL Urine Ketones (Negative) mg/dL Urine Blood (Negative) Urine Nitrite (Negative) Ur Leukocyte Esterase (Negative) Urine Opiates Screen (Not Detect) Ur Buprenorphine Scrn (Not Detect) ng/mL Ur Oxycodone Screen (Not Detect) ng/mL Urine Methadone Screen (Not Detect) ng/mL Urine Fentanyl Screen (Not Detect) Ur Barbiturates Screen (Not Detect) Ur Phencyclidine Scrn (Not Detect) Ur Amphetamines Screen (Not Detect) U Benzodiazepines Scrn (Not Detect) Urine Cocaine Screen (Not Detect) U Marijuana (THC) Screen (Not Detect) Ethyl Alcohol 292 mg/dL Influenza Type A (PCR) NEGATIVE (Negative) Influenza Type B (PCR) NEGATIVE (Negative) RSV RNA Qual (PCR) NEGATIVE (Negative) SARS-CoV-2 RNA (RT-PCR) NEGATIVE (Negative) Blood Type A Positive Antibody Screen NEGATIVE 08/13/23 08/13/23 08/13/23 Range/Units 21:50 21:55 23:00 WBC 5.9 (4.8-10.8) X10*3/uL RBC 5.37 (4.60-5.80) X10*6/uL Hgb 14.7 (14.0-18.0) g/dl Hct 42.7 (42.0-52.0) % MCV 79.5 L (80.0-98.0) fL MCH 27.4 (27.0-33.0) pg MCHC 34.4 (31.0-36.0) g/dl RDW 12.7 (11.0-16.0) % Plt Count 114 L (160-400) X10*3/uL MPV 10.1 (9.4-12.4) fL Immature Gran % (Auto) 0.2 (0.0-0.4) % Neut % (Auto) 40.4 L (45-73) % Lymph % (Auto) 47.5 H (20-40) % [place] % (Auto) 7.3 (2-11) % Eos % (Auto) 3.1 (0-4) % Baso % (Auto) 1.5 (0-2) % Lymph # (Auto) 2.8 (1.2-4.9) X10*3/uL [place] # (Auto) 0.4 (0.1-1.2) X10*3/uL Eos # (Auto) 0.2 (0.0-0.4) X10*3/uL Baso # (Auto) 0.1 (0.0-0.2) X10*3/uL Abs Immat Gran (auto) 0.01 (0.00-0.03) X10*3/uL Absolute Neuts (auto) 2.4 (2.0-8.3) x10*3/uL Absolute Nucleated RBC 0.000 (0.0-0.012) X10*3/uL Nucleated RBC % (auto) 0.0 (0.0-0.2) /100WBC PT (11.1-13.3) SEC INR (0.9-1.1) APTT (26.0-36.8) SEC VBG pH 7.39 (7.32-7.43) VBG pCO2 38 mmHg VBG pO2 67 mmHg VBG HCO3 23 (22-26) mmol/L VBG O2 Saturation 88.0 % VBG Base Excess -1.0 mmol/L Sodium (135-145) mmol/L Potassium (3.3-5.1) mmol/L Chloride (96-108) mmol/L Carbon Dioxide (22-29) mmol/L Anion Gap (12-20) BUN (9-16) mg/dL Creatinine (0.5-1.4) mg/dL Estim Creat Clear Calc Estimated GFR Random Glucose (60-115) mg/dL Lactic Acid (0.5-2.0) mmol/L Calcium (8.4-10.2) mg/dL Magnesium (1.6-2.6) mg/dL Total Bilirubin (0.0-1.0) mg/dL Direct Bilirubin (0.0-0.5) mg/dL AST (5-37) U/L ALT (0-40) U/L Alkaline Phosphatase (39-117) U/L Ammonia (13-55) umol/L Total Creatine Kinase (38-174) U/L Troponin I High Sens (<3.5-35.0) ng/L B-Natriuretic Peptide (<100) pg/mL Total Protein (6.5-8.0) g/dL Albumin (3.5-5.0) g/dL Lipase (8-78) U/L Procalcitonin ng/mL TSH (0.32-4.0) uIU/mL Urine Color Yellow Urine Appearance Clear Urine pH 6.0 (5.0-9.0) Ur Specific [place] 1.010 (1.005-1.025) Urine Protein Negative (Neg-Trace) mg/dL Urine Glucose (UA) Negative (Negative) mg/dL Urine Ketones Negative (Negative) mg/dL Urine Blood Negative (Negative) Urine Nitrite Negative (Negative) Ur Leukocyte Esterase Negative (Negative) Urine Opiates Screen Not Detected (Not Detect) Ur Buprenorphine Scrn Not Detected (Not Detect) ng/mL Ur Oxycodone Screen Not Detected (Not Detect) ng/mL Urine Methadone Screen Not Detected (Not Detect) ng/mL Urine Fentanyl Screen Not Detected (Not Detect) Ur Barbiturates Screen Not Detected (Not Detect) Ur Phencyclidine Scrn Not Detected (Not Detect) Ur Amphetamines Screen Not Detected (Not Detect) U Benzodiazepines Scrn Not Detected (Not Detect) Urine Cocaine Screen Not Detected (Not Detect) U Marijuana (THC) Screen Not Detected (Not Detect) Ethyl Alcohol mg/dL Influenza Type A (PCR) (Negative) Influenza Type B (PCR) (Negative) RSV RNA Qual (PCR) (Negative) SARS-CoV-2 RNA (RT-PCR) (Negative) Blood Type Antibody Screen Independent Interpretation I performed an independent interpretation of an: EKG and CT Scan (no trauma no ICH) Interpretation: Rate: 85 Rhythm: NSR with 1st degree AVB [place]: normal Normal P waves. 1st degree AVB Normal QRS complex. ST T wave : normal no VANE qTC: 447 prior studies: no acute ischemia The study has been interpreted contemporaneously by me. . Radiology Impression Discussion of test interpretation with radiology: I have reviewed the radiologist's reading. Independent Historian Clinical information obtained from an independent historian. History obtained from or confirmed by: EMS External Record Review External record reviewed: Inpatient record Critical Care Time Critical Care Time Critical Care Time: Yes Total Critical Care Time: 45 Attestation: review of records, IV thiamine, phenobarb protocol. I attest to this time spent taking care of the patient Discharge Plan Discharge Clinical Impression: Alcohol abuse, Recurrent falls, Acute hepatic encephalopathy Patient Disposition: Admitted As Inpatient Prescriptions: No Action oxycodone 5 mg tablet 5 mg PO BID PRN (Reason: pain) Qty: 7 0RF Rx Instructions: Partial Fill upon patient request. pantoprazole 40 mg tablet,delayed release (DR/EC) 40 mg PO DAILY thiamine HCl (vitamin B1) [Vitamin B-1] 100 mg tablet 100 mg PO DAILY Print Language: Lib[place]
[2023-08-13] MEDS: Thiamine HCL 200 MG in 0.9 % Sodium Chloride 100 ML 204 MG IV (21:54)
[2023-08-13] MEDS: Magnesium Sulfate/H2O 2 GM/50 ML PIGGYBACK IV (21:54)
[2023-08-13 21:56] LABS: MANUAL DIFF FLAG NO
[2023-08-13 21:57] LABS: Basophils Absolute Auto 0.1 X10*3/uL (0.0-0.2); Basophils Percent Auto 1.5 % (0-2); Eosinophils Absolute Auto 0.2 X10*3/uL (0.0-0.4); Eosinophils Percent Auto 3.1 % (0-4); Hematocrit 42.7 % (42.0-52.0); Hemoglobin 14.7 g/dl (14.0-18.0); Imm Gran Abs Auto 0.01 X10*3/uL (0.00-0.03); Imm Gran Pct Auto 0.2 % (0.0-0.4); Lymphocytes Absolute Auto 2.8 X10*3/uL (1.2-4.9); Lymphocytes Percent Auto 47.5 % (20-40); Mean Corpuscular HGB Conc 34.4 g/dl (31.0-36.0); Mean Corpuscular Hemoglobin 27.4 pg (27.0-33.0); Mean Corpuscular Volume 79.5 fL (80.0-98.0); Mean Platelet Volume 10.1 fL (9.4-12.4); Monocytes Absolute Auto 0.4 X10*3/uL (0.1-1.2); Monocytes Percent Auto 7.3 % (2-11); Neutrophils Absolute Auto 2.4 x10*3/uL (2.0-8.3); Neutrophils Percent Auto 40.4 % (45-73); Platelet Count 114 X10*3/uL (160-400); Red Blood Count 5.37 X10*6/uL (4.60-5.80); Red Cell Distribution Width 12.7 % (11.0-16.0); White Blood Count 5.9 X10*3/uL (4.8-10.8)
[2023-08-13 22:00] LABS: Venous Blood Gas Refer to POC result
[2023-08-13 22:01] LABS: VBG HCO3 23 mmol/L (22-26); VBG pCO2 38 mmHg; VBG pH 7.39 (7.32-7.43); VBG pO2 67 mmHg
[2023-08-13 22:06] LABS: Prothrombin Time 12.3 SEC (11.1-13.3)
[2023-08-13 22:06] LABS: Ammonia 71 umol/L (13-55)
[2023-08-13 22:09] LABS: Partial Thromboplastin Time 32.9 SEC (26.0-36.8)
[2023-08-13 22:13] LABS: Lactic Acid 2.4 mmol/L (0.5-2.0)
[2023-08-13 22:14] VITALS: BP 152/95; PULSE 90; RESP 19; TEMP 36.9; O2SAT 95
[2023-08-13 22:19] LABS: B Type Natriuretic Peptide < 10 pg/mL (<100)
[2023-08-13 22:22] LABS: Troponin-I High Sensitivity < 2.7 ng/L (<3.5-35.0)
[2023-08-13 22:25] LABS: Alanine Aminotransferase 80 U/L (0-40); Albumin Level 3.8 g/dL (3.5-5.0); Alkaline Phosphatase 97 U/L (39-117); Anion Gap 14 (12-20); Aspartate Amino Transferase 124 U/L (5-37); Bilirubin Direct 0.4 mg/dL (0.0-0.5); Blood Urea Nitrogen 10 mg/dL (9-16); Calcium 8.4 mg/dL (8.4-10.2); Carbon Dioxide 24 mmol/L (22-29); Chloride 106 mmol/L (96-108); Creatinine Clr Calc Pharmacy 73.1; Estimated Glomerular Filt Rate > 60; Ethanol 292 mg/dL; Glucose Random 183 mg/dL (60-115); Lipase 61 U/L (8-78); Magnesium 1.9 mg/dL (1.6-2.6); Potassium 3.3 mmol/L (3.3-5.1); Sodium 141 mmol/L (135-145); Total Protein 8.1 g/dL (6.5-8.0)
[2023-08-13] MEDS: 0.9 % Sodium Chloride 500 ML IV (22:27)
--- NOTE | 2023-08-13 22:33 | PC.NURSE ---
within minutes after arrival to the ER pt became responsive to verbal stimuli. makes appropriate eye contact. calm and cooperative w/ assessment. alert and oriented to person. unsure of where he is or what happened. pt speaking in clear sentences to make his needs known such as asking for warm blanket. denies any pain or discomfort at this time. when not engaged in conversation w/ patient he falls back off to sleep.
[2023-08-13 22:35] LABS: TSH reflex Free T4 1.56 uIU/mL (0.32-4.0)
[2023-08-13 22:36] LABS: Influenza A PCR NEGATIVE (Negative); Influenza B PCR NEGATIVE (Negative); Resp Syncy Virus RNA Qual PCR NEGATIVE (Negative); SARS COV2 PCR INHOUSE NEGATIVE (Negative)
[2023-08-13 22:37] LABS: Procalcitonin 0.02 ng/mL
[2023-08-13 23:07] LABS: Appearance Urine Clear; Color Urine Yellow; Glucose Urine UA Negative (Negative); Leukocyte Esterase Urine Negative (Negative); Nitrite Urine Negative (Negative); Urine Blood Negative (Negative); Urine Ketones Negative (Negative); Urine Protein Negative (Neg-Trace)
[2023-08-13 23:16] LABS: Amphetamine Screen Urine Not Detected (Not Detect); Barbiturates, Urine Not Detected (Not Detect); Benzodiazepines Screen Urine Not Detected (Not Detect); Buprenorphine Scr Not Detected (Not Detect); Cannabinoid Screen Urine Not Detected (Not Detect); Cocaine Screen Urine Not Detected (Not Detect); Fentanyl, urine Not Detected (Not Detect); Methadone Screen, Urine Not Detected (Not Detect); Opiate Screen Urine Not Detected (Not Detect); Oxycodone Screen Urine Not Detected (Not Detect); Phencyclidine Screen Urine Not Detected (Not Detect)
[2023-08-13 23:53] LABS: Reflex Lactate? Lactic Acid Added
[2023-08-13 23:55] VITALS: BP 149/85; PULSE 73; RESP 16; TEMP 36.8; O2SAT 92
--- NOTE | 2023-08-14 00:03 | P.HPHOSP_ITS ---
History of Present Illness Date of Service: 08/14/23 Chief Complaint: Altered mentation This is a 67-year-old male with pertinent history of alcohol use disorder with alcoholic cirrhosis who was brought to the emergency department for evaluation of altered mentation. Patient is only oriented to self and disoriented to time, place. Unable to obtain history from the patient. History obtained from ER provider and chart review. Family called EMS as patient was found down confused for unknown duration of time. Family reported heavy alcohol use. Patient has not seen a physician in many years and does not take any home p.o. prescription medications Review of Systems 2 Review of Systems: Yes Unobtainable due to mental status PMFSH Medical History Cataract (lens) fragments in eye following cataract surgery, bilateral Hx of ascites Alcohol dependence Cirrhosis Surgical History History of esophagogastroduodenoscopy (EGD) Surgical history unknown Social History Alcohol intake: current Alcohol intake frequency: 3 or more drinks per day Alcohol type: beer Patient Tobacco Use Status: Former Tobacco user Use of substances other than those prescribed or required for medical reasons: No Advance Directives: No Advance Directives Information Provided: No Advance Directives Date on File: 06/07/19 Do you have a plan to hurt others: No Plan Meds Allergies Allergy/AdvReac Type Severity Reaction Status Date / Time No Known Allergies Allergy Unverified 08/13/23 21:33 [No Known Allergies*] Active Medications: Current Medications Pharmacy Consult (Consult Rx Etoh Phenob Im/Po) 1 each MISCELLANE ONCE PRN; Protocol PRN Reason: Consult order Phenobarbital (Phenobarbital 15 Mg Tablet) 45 mg PO BID [facility]; Protocol Stop: 08/15/23 21:01 Phenobarbital (Phenobarbital 15 Mg Tablet) 15 mg PO BID [facility]; Protocol Stop: 08/17/23 21:01 Phenobarbital (Phenobarbital 15 Mg Tablet) 15 mg PO DAILY [facility]; Protocol Stop: 08/19/23 09:01 Phenobarbital Sodium (Phenobarbital Sodium 130 Mg/Ml Im Once) 143 mg IM ONCE ONE Stop: 08/14/23 00:31 Phenobarbital Sodium (Phenobarbital Sodium 130 Mg/Ml Vial Im Q3hx2) 104 mg IM Q3H [facility] Stop: 08/14/23 06:31 Home Medications ?Medication ?Instructions ?Recorded ?Confirmed ?Last Taken ?Type pantoprazole 40 mg tablet,delayed 40 mg PO DAILY 01/31/22 Unknown History release thiamine HCl (vitamin B1) 100 mg 100 mg PO DAILY 01/31/22 Unknown History tablet (Vitamin B-1) Physical Exam 2 Vital Signs and Narrative: Vital Signs: Last Vital Signs Temp 98.2 F 08/13/23 23:55 Pulse 73 08/13/23 23:55 Resp 16 08/13/23 23:55 BP 149/85 H 08/13/23 23:55 Pulse Ox 92 08/13/23 23:55 O2 Del Method Room Air 08/13/23 23:55 O2 Flow Rate 95 08/13/23 22:14 BMI result Body Mass Index 20.8 Middle-aged male lying in bed in no distress Neck supple, no JVD Regular rate and rhythm, S1-S2 heard Regular breath sounds bilaterally, no wheezing or crackles appreciated Abdomen soft nontender, no guarding, no rigidity Patient is lethargic and awakens to verbal stimulus, oriented to self, disoriented to time and place Psych: Drowsy No pedal edema Results Labs 08/13/23 21:50 08/13/23 21:49 Labs: Laboratory Results - last 24 hr 08/13/23 08/13/23 08/13/23 21:47 21:48 21:49 MCV MCH MCHC RDW Plt Count MPV Immature Gran % (Auto) Neut % (Auto) Lymph % (Auto) [place] % (Auto) Eos % (Auto) Baso % (Auto) Lymph # (Auto) [place] # (Auto) Eos # (Auto) Baso # (Auto) Abs Immat Gran (auto) Absolute Neuts (auto) Absolute Nucleated RBC Nucleated RBC % (auto) PT 12.3 INR 1.0 APTT 32.9 VBG pH VBG pCO2 VBG pO2 VBG HCO3 VBG O2 Saturation VBG Base Excess Anion Gap 14 Estim Creat Clear Calc 73.1 Estimated GFR > 60 Random Glucose 183 H Lactic Acid 2.4 H* Calcium 8.4 Magnesium 1.9 Total Bilirubin 1.0 Direct Bilirubin 0.4 AST 124 H ALT 80 H Alkaline Phosphatase 97 Ammonia 71 H Total Creatine Kinase 206 H Troponin I High Sens < 2.7 B-Natriuretic Peptide < 10 Total Protein 8.1 H Albumin 3.8 Lipase 61 Procalcitonin 0.02 TSH 1.56 Urine Color Urine Appearance Urine pH Ur Specific [place] Urine Protein Urine Glucose (UA) Urine Ketones Urine Blood Urine Nitrite Ur Leukocyte Esterase Urine Opiates Screen Ur Buprenorphine Scrn Ur Oxycodone Screen Urine Methadone Screen Urine Fentanyl Screen Ur Barbiturates Screen Ur Phencyclidine Scrn Ur Amphetamines Screen U Benzodiazepines Scrn Urine Cocaine Screen U Marijuana (THC) Screen Ethyl Alcohol 292 Influenza Type A (PCR) NEGATIVE Influenza Type B (PCR) NEGATIVE RSV RNA Qual (PCR) NEGATIVE SARS-CoV-2 RNA (RT-PCR) NEGATIVE Blood Type A Positive Antibody Screen NEGATIVE 08/13/23 08/13/23 08/13/23 21:50 21:55 23:00 MCV 79.5 L MCH 27.4 MCHC 34.4 RDW 12.7 Plt Count 114 L MPV 10.1 Immature Gran % (Auto) 0.2 Neut % (Auto) 40.4 L Lymph % (Auto) 47.5 H [place] % (Auto) 7.3 Eos % (Auto) 3.1 Baso % (Auto) 1.5 Lymph # (Auto) 2.8 [place] # (Auto) 0.4 Eos # (Auto) 0.2 Baso # (Auto) 0.1 Abs Immat Gran (auto) 0.01 Absolute Neuts (auto) 2.4 Absolute Nucleated RBC 0.000 Nucleated RBC % (auto) 0.0 PT INR APTT VBG pH 7.39 VBG pCO2 38 VBG pO2 67 VBG HCO3 23 VBG O2 Saturation 88.0 VBG Base Excess -1.0 Anion Gap Estim Creat Clear Calc Estimated GFR Random Glucose Lactic Acid Calcium Magnesium Total Bilirubin Direct Bilirubin AST ALT Alkaline Phosphatase Ammonia Total Creatine Kinase Troponin I High Sens B-Natriuretic Peptide Total Protein Albumin Lipase Procalcitonin TSH Urine Color Yellow Urine Appearance Clear Urine pH 6.0 Ur Specific [place] 1.010 Urine Protein Negative Urine Glucose (UA) Negative Urine Ketones Negative Urine Blood Negative Urine Nitrite Negative Ur Leukocyte Esterase Negative Urine Opiates Screen Not Detected Ur Buprenorphine Scrn Not Detected Ur Oxycodone Screen Not Detected Urine Methadone Screen Not Detected Urine Fentanyl Screen Not Detected Ur Barbiturates Screen Not Detected Ur Phencyclidine Scrn Not Detected Ur Amphetamines Screen Not Detected U Benzodiazepines Scrn Not Detected Urine Cocaine Screen Not Detected U Marijuana (THC) Screen Not Detected Ethyl Alcohol Influenza Type A (PCR) Influenza Type B (PCR) RSV RNA Qual (PCR) SARS-CoV-2 RNA (RT-PCR) Blood Type Antibody Screen Imaging Radiologist's Impressions: Impressions Cervical Spine CT 08/13/23 21:57 IMPRESSION: 1. No acute intracranial pathology. 2. No acute fracture or malalignment in the cervical spine. 3. Mild to moderate multilevel degenerative spondylosis in the cervical spine with multilevel neural foraminal encroachment Head CT 08/13/23 21:57 IMPRESSION: 1. No acute intracranial pathology. 2. No acute fracture or malalignment in the cervical spine. 3. Mild to moderate multilevel degenerative spondylosis in the cervical spine with multilevel neural foraminal encroachment Abdomen/Pelvis CT 08/13/23 22:05 IMPRESSION: 1. No acute abnormalities are identified in the chest, abdomen, and pelvis. 2. Hepatic cirrhosis. 3. Small fat-containing umbilical hernia. 4. Bilateral L5 pars defects with grade 1 anterolisthesis of L5 on S1. Chest CT 08/13/23 22:05 IMPRESSION: 1. No acute abnormalities are identified in the chest, abdomen, and pelvis. 2. Hepatic cirrhosis. 3. Small fat-containing umbilical hernia. 4. Bilateral L5 pars defects with grade 1 anterolisthesis of L5 on S1. Assessment and Plan (1) Acute hepatic encephalopathy: Status: Acute (2) Alcohol use disorder: Status: Acute Plan This is a 67-year-old male with pertinent history of alcohol use disorder with alcoholic cirrhosis who was brought to the emergency department for evaluation of altered mentation. #. Acute hepatic encephalopathy in a patient with alcoholic cirrhosis: Initiating lactulose, monitor mentation. Repeat ammonia in a.m.. Will need to establish care with Gastroenterology. Defer diuretics for now #. Alcohol use disorder: Initiated on phenobarb protocol in the ER. Initiating thiamine. Consulted Addiction Team, appreciate assistance. Monitor CIWA #. Elevated transaminases due to alcohol use #. Acute Lactic acidosis due to liver disease. Not due to sepsis #. Thrombocytopenia due to cirrhosis DVT prophylaxis: Lovenox Full code Admit as inpatient and will require two night minimum hospital stay for close monitoring of mentation (as above), which is not possible in a lesser acute setting. Quality Stroke Does the patient have a stroke diagnosis?: No VTE Prior VTE?: No VTE Risk Level:: Medical - moderate - high VTE Device Contraindication: Treatment Not Indicated VTE Drug Contraindication: N/A - Med Ordered
[2023-08-14] MEDS: PHENobarbitaL sodium 130 MG/ML IM ONCE 143 MG IM (00:17)
[2023-08-14] MEDS: Lactulose 20 GM/30 ML SOLUTION PO ×5 (00:17→21:34)
[2023-08-14] MEDS: Enoxaparin Sodium 40 MG/0.4 ML SYRINGE SUBCUT (00:27)
[2023-08-14 00:47] LABS: ~Lactic Acid-LAB USE ONLY 1.9 mmol/L (0.5-2.0)
[2023-08-14 03:03] VITALS: BP 147/84; PULSE 65; RESP 16; TEMP 36.7; O2SAT 92
[2023-08-14] MEDS: PHENobarbitaL sodium 130 MG/ML VIAL IM Q3Hx2 104 MG IM ×2 (03:49→06:40)
[2023-08-14 04:48] LABS: MANUAL DIFF FLAG NO
[2023-08-14 04:50] LABS: Basophils Absolute Auto 0.1 X10*3/uL (0.0-0.2); Basophils Percent Auto 1.7 % (0-2); Eosinophils Absolute Auto 0.2 X10*3/uL (0.0-0.4); Eosinophils Percent Auto 3.8 % (0-4); Hematocrit 41.2 % (42.0-52.0); Hemoglobin 14.2 g/dl (14.0-18.0); Imm Gran Abs Auto 0.01 X10*3/uL (0.00-0.03); Imm Gran Pct Auto 0.2 % (0.0-0.4); Lymphocytes Percent Auto 48.1 % (20-40); Mean Corpuscular HGB Conc 34.5 g/dl (31.0-36.0); Mean Corpuscular Hemoglobin 27.2 pg (27.0-33.0); Mean Corpuscular Volume 78.9 fL (80.0-98.0); Mean Platelet Volume 10.8 fL (9.4-12.4); Monocytes Absolute Auto 0.4 X10*3/uL (0.1-1.2); Monocytes Percent Auto 9.1 % (2-11); Neutrophils Absolute Auto 1.5 x10*3/uL (2.0-8.3); Neutrophils Percent Auto 37.1 % (45-73); Red Blood Count 5.22 X10*6/uL (4.60-5.80); Red Cell Distribution Width 12.5 % (11.0-16.0); White Blood Count 4.2 X10*3/uL (4.8-10.8)
[2023-08-14 04:51] LABS: Platelet Count 98 X10*3/uL (160-400)
[2023-08-14 05:04] LABS: Anion Gap 16 (12-20); Blood Urea Nitrogen 8 mg/dL (9-16); Calcium 8.2 mg/dL (8.4-10.2); Carbon Dioxide 22 mmol/L (22-29); Chloride 109 mmol/L (96-108); Creatinine Clr Calc Pharmacy 83.7; Estimated Glomerular Filt Rate > 60; Glucose Random 103 mg/dL (60-115); Potassium 3.6 mmol/L (3.3-5.1); Sodium 143 mmol/L (135-145)
[2023-08-14 08:09] VITALS: BP 151/90; PULSE 76; RESP 19; TEMP 36.4; O2SAT 95
[2023-08-14] MEDS: 0.9 % Sodium Chloride Flush 3 ML SYRINGE IVFLUSH ×3 (08:39→21:34)
[2023-08-14] MEDS: Thiamine HCL 100 MG in 0.9 % Sodium Chloride 100 ML 202 MG IV (08:41)
--- NOTE | 2023-08-14 09:00 | PC.NURSE ---
Daughter called, asks for updates if able. [phone]
--- NOTE | 2023-08-14 09:00 | PC.NURSE ---
Pt alert, answering some questions, confused on time. Breathing even and unlabored, skin warm and dry. Pt denies pain, CIWA 1 (for confusion on date). Pt has no complaints when asked, resting in bed.
[2023-08-14] MEDS: Famotidine/PF 20 MG/2 ML VIAL IVPUSH (09:17)
[2023-08-14 09:26] LABS: Ammonia 59 umol/L (13-55)
--- NOTE | 2023-08-14 10:34 | PHA.MEDREC ---
Pharmacy Consult ? Medication Reconciliation Pharmacy has completed the medication reconciliation. No recent claim history. Pt confirms no home meds.
--- NOTE | 2023-08-14 11:16 | MHC.CM.ED ---
Attempted to meet with patient in regards to discharge planning. Patient currently sleeping. Spoke with patient's daughter, Cally, via telephone at [phone]. Patient lives with his , ambulates independently and had no services prior to coming to the hospital Patient does not drive. Cally typically drives patient to doctor's appointments, store, etc. Cally denies the need for STR or any services at d/c. PCP verified. Copy of HCP verified to be on file. IMM explained and left bedside. Cally or her brother will tranpsort patient home when medically stable. Continue to monitor for d/c needs.
[2023-08-14 11:37] VITALS: BP 177/100; PULSE 91; RESP 19; O2SAT 95
[2023-08-14 13:19] VITALS: BP 166/95; PULSE 72; RESP 15; O2SAT 95
[2023-08-14] MEDS: PHENobarbitaL 15 MG TABLET 45 MG PO ×2 (13:57→21:34)
--- NOTE | 2023-08-14 15:07 | P.EN_ITS ---
Event Note Date of Service: 08/14/23 Event Note: Admitted for acute hepatic encephalopathy with underlying history of alcoholic cirrhosis and alcohol use disorder. At present patient is awake alert passed swallow eval, aware that he is in the hospital, offers no other acute complaints, denies tremors. #. Acute hepatic encephalopathy with history of alcoholic cirrhosis: More awake alert, Ammonia 71, continue lactulose, Repeat ammonia in a.m. #. Alcohol use disorder: on phenobarb protocol , thiamine, will add folic acid Follow Addiction Team recommendation ,monitor CIWA. #. Chronic Elevated transaminases due to alcohol use, no abdominal pain, follow clinical course #. Acute Lactic acidosis due to liver disease. Resolved, Not due to sepsis. #. Thrombocytopenia due to cirrhosis. No active bleed noted DVT prophylaxis: dc Lovenox due to thrombocytopenia will place on compression b oots. Full code Time Spent With Patient Time: Total time managing care of this patient today ____ minutes.
[2023-08-14 15:19] VITALS: BP 153/80; PULSE 80; RESP 18; TEMP 36.4; O2SAT 97
[2023-08-14] MEDS: Folic Acid 1 MG TABLET PO (16:25)
[2023-08-14 19:16] VITALS: BP 161/86; PULSE 85; RESP 16; TEMP 36.8; O2SAT 97
[2023-08-14] MEDS: Melatonin 3 MG TABLET 6 MG PO (21:34)
--- NOTE | 2023-08-14 22:35 | PC.NURSE ---
When assessing for pain, patient reports no pain and states that he is feeling much better.
[2023-08-15 03:48] VITALS: BP 155/87; PULSE 64; RESP 16; TEMP 36.7; O2SAT 96
[2023-08-15 05:49] LABS: Ammonia 84 umol/L (13-55)
[2023-08-15 05:56] LABS: Alanine Aminotransferase 63 U/L (0-40); Albumin Level 3.5 g/dL (3.5-5.0); Alkaline Phosphatase 69 U/L (39-117); Anion Gap 12 (12-20); Aspartate Amino Transferase 87 U/L (5-37); Bilirubin Direct 0.9 mg/dL (0.0-0.5); Bilirubin Total 2.5 mg/dL (0.0-1.0); Blood Urea Nitrogen 6 mg/dL (9-16); Calcium 8.8 mg/dL (8.4-10.2); Carbon Dioxide 23 mmol/L (22-29); Chloride 103 mmol/L (96-108); Creatinine Clr Calc Pharmacy 87.5; Estimated Glomerular Filt Rate > 60; Glucose Random 102 mg/dL (60-115); Potassium 3.4 mmol/L (3.3-5.1); Sodium 135 mmol/L (135-145); Total Protein 7.4 g/dL (6.5-8.0)
[2023-08-15 07:20] VITALS: BP 167/86; PULSE 71; RESP 16; TEMP 36.6; O2SAT 98
[2023-08-15] MEDS: Thiamine HCL 100 MG in 0.9 % Sodium Chloride 100 ML 202 MG IV (09:09)
[2023-08-15] MEDS: Folic Acid 1 MG TABLET PO (09:10)
[2023-08-15] MEDS: Famotidine/PF 20 MG/2 ML VIAL IVPUSH (09:10)
[2023-08-15] MEDS: 0.9 % Sodium Chloride Flush 3 ML SYRINGE IVFLUSH (09:11)
[2023-08-15] MEDS: Lactulose 20 GM/30 ML SOLUTION PO ×2 (09:11→13:17)
[2023-08-15] MEDS: PHENobarbitaL 15 MG TABLET 45 MG PO (09:11)
--- NOTE | 2023-08-15 13:16 | HO.PM.IMPN ---
Subjective Subjective Date of Service: 08/15/23 Interval History: Feeling better this morning, answering questions appropriately, tolerated diet no nausea, no vomiting, no abdominal pain denies shakiness, no tremors, no pain, had multiple loose stools yesterday and once this morning on lactulose. Review of Systems All other system reviewed and negative Physical Exam Vital Signs: Vital Signs: Last Vital Signs Temp 97.9 F 08/15/23 07:20 Pulse 71 08/15/23 07:20 Resp 16 08/15/23 07:20 BP 167/86 H 08/15/23 07:20 Pulse Ox 98 08/15/23 07:20 O2 Del Method Room Air 08/15/23 07:20 O2 Flow Rate 95 08/13/23 22:14 BMI result Body Mass Index 20.8 Const: Other: General awake alert x3, resting comfortably in no acute distress. Neck supple no JVD. CVS regular rate rhythm, Respiratory lungs clear to auscultation, no respiratory distress, no wheeze, no rhonchi. Gastrointestinal abdomen soft, non tender, bowel sounds audible, no guarding , no rigidity. Extremities no edema. Neuro non focal ,speech clear, no tremors,no asterixis. Objective Data Active Medications Acetaminophen (Acetaminophen 325 Mg Tablet) 650 mg PO Q6H PRN PRN Reason: Pain, Mild (Pain Scale 1-3) Acetaminophen (Acetaminophen Supp 650 Mg Supp.Rect) 650 mg CO Q6H PRN PRN Reason: Pain, Mild (Pain Scale 1-3) Famotidine (Famotidine/Pf 20 Mg/2 Ml Vial) 20 mg IVPUSH DAILY [facility] Last Admin: 08/15/23 09:10 Dose: 20 mg Documented By: EDI Folic Acid (Folic Acid 1 Mg Tablet) 1 mg PO DAILY [facility] Last Admin: 08/15/23 09:10 Dose: 1 mg Documented By: EDI Thiamine HCl 100 mg/ Sodium (Chloride) 101 mls @ 202 mls/hr IV DAILY [facility] Last Infusion: 08/15/23 09:55 Dose: Infused Documented By: RAKESH Lactulose (Lactulose 20 Gm/30 Ml Solution) 20 gm PO QID [facility] Last Admin: 08/15/23 09:11 Dose: 20 gm Documented By: EDI Melatonin (Melatonin 3 Mg Tablet) 6 mg PO BEDTIME PRN PRN Reason: Insomnia Last Admin: 08/14/23 21:34 Dose: 6 mg Documented By: OSCAR Nicotine Polacrilex (Nicotine Polacrilex Lozenge 2 Mg Lozenge) 2 mg BUCCAL Q2H PRN PRN Reason: Anxiety Ondansetron HCl (Ondansetron Hcl 4 Mg/2 Ml Vial) 4 mg IVPUSH Q8H PRN PRN Reason: Nausea and Vomiting Pharmacy Consult (Consult Rx Etoh Phenob Im/Po) 1 each MISCELLANE ONCE PRN; Protocol PRN Reason: Consult order Phenobarbital (Phenobarbital 15 Mg Tablet) 45 mg PO BID [facility]; Protocol Stop: 08/15/23 21:01 Last Admin: 08/15/23 09:11 Dose: 45 mg Documented By: EDI Phenobarbital (Phenobarbital 15 Mg Tablet) 15 mg PO BID [facility]; Protocol Stop: 08/17/23 21:01 Phenobarbital (Phenobarbital 15 Mg Tablet) 15 mg PO DAILY [facility]; Protocol Stop: 08/19/23 09:01 Sodium Chloride (0.9 % Sodium Chloride Flush 3 Ml Syringe) 3 ml IVFLUSH [facility] Last Admin: 08/15/23 09:11 Dose: 3 ml Documented By: EDI Labs 08/14/23 04:42 08/15/23 05:36 Labs: Laboratory Results - last 24 hr 08/15/23 05:36 Anion Gap 12 Estim Creat Clear Calc 87.5 Estimated GFR > 60 Random Glucose 102 Calcium 8.8 D Total Bilirubin 2.5 H Direct Bilirubin 0.9 H AST 87 H ALT 63 H Alkaline Phosphatase 69 Ammonia 84 H Total Protein 7.4 Albumin 3.5 Microbiology Microbiology Results: Microbiology 08/13/23 21:47 Blood Culture - Preliminary Blood - Venous No growth after 24 hours. 08/13/23 21:47 Blood Culture - Preliminary Blood - Venous No growth after 24 hours. Assessment and Plan (1) Alcohol use disorder: Status: Acute (2) Acute hepatic encephalopathy: Status: Acute Plan #. Acute hepatic encephalopathy with history of alcoholic cirrhosis: Seems to be at his baseline despite worsening ammonia that bumped to 85, continue lactulose, Repeat ammonia in a.m. #. Alcohol use disorder with high risk for withdrawal: Alcohol level 292 on admission on phenobarb protocol , thiamine, and folic acid Follow Addiction Team recommendation ,monitor CIWA. Strongly recommend to abstain from alcohol #. Chronic Elevated transaminases due to alcohol use, no abdominal pain, follow clinical course #. Acute Lactic acidosis due to liver disease. Resolved, Not due to sepsis. #. Thrombocytopenia due to cirrhosis. No active bleed noted, avoid anticoagulation DVT prophylaxis: on compression boots. Full code Patient will require continued inpatient hospitalization due to acute hepatic encephalopathy, alcohol use disorder with withdrawal on phenobarb protocol needs expert consultation Quality Stroke Does the patient have a stroke diagnosis?: No VTE Prior VTE?: No VTE Risk Level:: Medical - moderate - high VTE Device Contraindication: Treatment Not Indicated VTE Drug Contraindication: N/A - Med Ordered
--- NOTE | 2023-08-15 13:35 | MHC.RECOVRN ---
Met with pt in 371 after consult placed to Addiction Medicine for alcohol use. Pt had presented to the ED after being found unresponsive on the floor by family members, per family pt has been drinking large amounts of alcohol. Upon evaluation, pt admitted for acute hepatic encephalopathy as well as AUD and withdrawal. Pt primarily Japanese speaking, however, is able to make needs known. Pt sitting in bed, awake, alert, engages in conversation, appears comfortable. Pts daughter on phone via video call. Pt reports alcohol use, 6 beers plus 2-3 shots liquor daily. Pt reports he has been drinking beer his whole life but has had a recurrence with liquor x 2 months. Pts goal is to reduce the amount of beer and abstain from liquor. Pt denies hx treatment for AUD. Discussed outpatient recovery resources and supports with pt and daughter, including [facility] and the [facility]. Pt is interested in naltrexone initiation. Provided pt with written resources. [facility] appt 08/21 at 11AM, RN and pt aware. Pt denies questions or concerns for t/w. Discussed with Moraima Dodd APRN.
--- NOTE | 2023-08-15 14:10 | PM.DS ---
DS: Providers Provider Date of Service: 08/15/23 Date of admission: 08/14/23 00:01 Primary care physician: Christian Klein MD Consults: 08/14/23 00:01 Addiction Medicine Routine Consulting Provider: Addiction Covering Reason for consultation: alcohol use disorder DS: Diagnosis Discharge Diagnosis (1) Alcohol use disorder: Status: Acute (2) Acute hepatic encephalopathy: Status: Acute DS: Summary Hospital Course Hospital Course: History of presenting illness: Date of Service: 08/14/23 Chief Complaint: Altered mentation This is a 67-year-old male with pertinent history of alcohol use disorder with alcoholic cirrhosis who was brought to the emergency department for evaluation of altered mentation. Patient is only oriented to self and disoriented to time, place. Unable to obtain history from the patient. History obtained from ER provider and chart review. Family called EMS as patient was found down confused for unknown duration of time. Family reported heavy alcohol use. Patient has not seen a physician in many years and does not take any home p.o. prescription medications. Hospital course: #. 67-year-old gentleman with history of alcohol use disorder/alcoholic cirrhosis admitted to [facility] with a diagnosis of Acute hepatic encephalopathy treated with lactulose, confusion resolved, but patient noted to have persistent hyperammonemia, since patient feeling better and wishes to be discharged home with family and daughter at bedside agreed to take patient home will discharge him on lactulose recommend to take lactulose As directed, and hold the dosage if noted to have more than 2 bowel movements per day. #. In regard to Alcohol use disorder with high risk for withdrawal, patient alcohol level on admission was 292 he was placed on phenobarb protocol thiamine and folic acid, prior to discharge patient seen by Addiction Team outpatient recovery resources and supports were discussed with patient and daughter, outpatient appointment with [facility] was given to patient for August 21 at 11:00. #. Chronic Elevated transaminases due to alcohol use, no abdominal pain, recommended complete abstinence from alcohol and outpatient follow-up with PCP #. Acute Lactic acidosis due to liver disease resolved. #. Thrombocytopenia due to cirrhosis, no active bleed noted platelets remained stable.. Time Attestation Discharge Coordination Time (in mins): 36 Quality: Safe Use of Opioids Does Pt have an Active Cancer Diagnosis on the Problem List?: No Quality: Stroke Does the patient have a stroke diagnosis?: No Physical Exam Vital Signs: Vital Signs: Last Vital Signs Temp 97.9 F 08/15/23 07:20 Pulse 71 08/15/23 07:20 Resp 16 08/15/23 07:20 BP 167/86 H 08/15/23 07:20 Pulse Ox 98 08/15/23 07:20 O2 Del Method Room Air 08/15/23 07:20 O2 Flow Rate 95 08/13/23 22:14 BMI result Body Mass Index 20.8 Const: Other: General awake alert x3, resting comfortably in no acute distress. Neck supple no JVD. CVS regular rate rhythm, Respiratory lungs clear to auscultation, no respiratory distress, no wheeze, no rhonchi. Gastrointestinal abdomen soft, non tender, bowel sounds audible, no guarding , no rigidity. Extremities no edema. Neuro non focal ,speech clear, no tremors,no asterixis. DS: Data Data Completed and Pending Labs on day of discharge: Laboratory Results - last 24 hr 08/15/23 05:36 Sodium 135 Potassium 3.4 Chloride 103 Carbon Dioxide 23 Anion Gap 12 BUN 6 L Creatinine 0.66 Estim Creat Clear Calc 87.5 Estimated GFR > 60 Random Glucose 102 Calcium 8.8 D Total Bilirubin 2.5 H Direct Bilirubin 0.9 H AST 87 H ALT 63 H Alkaline Phosphatase 69 Ammonia 84 H Total Protein 7.4 Albumin 3.5 Preliminary micro results at discharge 08/13/23 21:47 Blood Culture - Preliminary Blood - Venous No growth after 24 hours. 08/13/23 21:47 Blood Culture - Preliminary Blood - Venous No growth after 24 hours. Discharge Plan Discharge Anticipated Discharge Date/Time: 08/15/23 14:05 Patient Disposition: Home, Self-Care Discharge Diagnosis: Alcohol use disorder/alcohol withdrawal Hepatic encephalopathy Referrals: Christian Klein MD [Primary Care Provider] - 1 Week Discharge Medications: New nicotine (polacrilex) 2 mg Lozenge 2 mg buccal Q2H PRN (Reason: Anxiety) Qty: 72 0RF lactulose 20 gram/30 mL Solution 20 g PO BID Qty: 1200 0RF Discharge Orders: Discharge Order (Routine); Ordered 08/15/23 Ordered By: Mauricio Park Diet: Advance to usual diet Activity on Discharge: As tolerated Stand Alone Forms: Patient Portal Discharge page Print Language: Mexican Care Plan Goals: Alcohol use/withdrawal strongly recommend to abstain from alcohol Seen by Addiction Team they recommend outpatient follow-up Elevated ammonia level take lactulose twice daily hold for more than 2 bowel movement a day Health Concerns: Tobacco use disorder Plan of Treatment: Outpatient follow-up with primary care physician and follow referral from Addiction Team Assessment: As above Discharge Date/Time: 08/15/23 15:14
--- NOTE | 2023-08-15 15:02 | MHC.CM.PN ---
IMM 08/14/23 Patient discharged to home self care. He received community resource info from the recovery team. He arranged for transportation for discharge from a family member.
== END 2023-08-15 15:14 | disposition home or self-care (01) | DRG 442 ==
LOC: HO.ED 23:37 → HO.EDOVER 08-14 00:07 → HO.S3 08-14 12:48
PROVIDERS: Admitting Provider Student in an Organized Health Care Education/Training Program; Emergency Provider Emergency Medicine; PCP Internal Medicine; Visit Provider Hospitalist
DX: K76.82 Hepatic encephalopathy (principal); E87.21 Acute metabolic acidosis; K70.30 Alcoholic cirrhosis of liver without ascites; Y90.8 Blood alcohol level of 240 mg/100 ml or more; F10.129 Alcohol abuse with intoxication, unspecified; D69.59 Other secondary thrombocytopenia; Z20.822 Contact with and (suspected) exposure to COVID-19; Z87.891 Personal history of nicotine dependence
CPT/HCPCS: 0241U; 36415; 70450; 71250; 72125; 74176; 80048; 80076; 80307; 81003; 82140; 82550; 82803; 83605; 83690; 83735; 83880; 84145; 84443; 84484; 85025; 85610; 85730; 86850; 86900; 86901; 87040; 93005; 99285; J1650; J2560; J3411; J3475

== ENCOUNTER → 2023-08-13 21:36 | Outpatient (BNV) | payer MEDICARE, MEDICAID, SELFPAY | PROVIDERS: Admitting Provider Student in an Organized Health Care Education/Training Program; Emergency Provider Emergency Medicine; PCP Internal Medicine; Visit Provider Internal Medicine | DX: K76.82 Hepatic encephalopathy (principal) | CPT/HCPCS: 93010 ==

== ENCOUNTER → 2023-08-14 00:01 | Outpatient (BNV) | payer MEDICARE, MEDICAID, SELFPAY | PROVIDERS: Admitting Provider Student in an Organized Health Care Education/Training Program; Emergency Provider Emergency Medicine; Visit Provider Student in an Organized Health Care Education/Training Program | DX: K76.82 Hepatic encephalopathy (principal); K70.30 Alcoholic cirrhosis of liver without ascites | CPT/HCPCS: 99222; 99239; 99499 ==

== ENCOUNTER 2024-02-27 14:36 | Emergency (ER) | payer OTHER, SELFPAY ==
--- NOTE | ~2024-02-27 | XR_ITS ---
EXAMINATION: XR CHEST CLINICAL INFORMATION: Chest pain COMPARISON: Prior chest August 2023 CT chest July 2023 TECHNIQUE: 2 views of the chest were obtained. FINDINGS: No significant abnormality is noted involving the heart, lungs, mediastinum, bony thorax or soft tissues. XR/XR chest 2V IMPRESSION: Unremarkable examination. Electronically signed by: Freddy Bob MD 02/27/2024 04:40 PM [facility]
--- NOTE | 2024-02-27 14:48 | ECG_ITS ---
Test Reason : CHEAST PAIN Blood Pressure : / mmHG Vent. Rate : 065 BPM Atrial Rate : 065 BPM P-R Int : 186 ms QRS Dur : 088 ms QT Int : 422 ms P-R-T Axes : 031 013 026 degrees QTc Int : 438 ms Normal sinus rhythm Normal ECG When compared with ECG of 13-AUG-2023 21:31, No significant change was found Referred By: Jo Dia Electronically Signed By:Merrill Campuzano
[2024-02-27 14:54] VITALS: BP 166/95; BP 173/88; PULSE 69; PULSE 80; RESP 18; TEMP 36.7; O2SAT 97; BMI 23.6
--- NOTE | 2024-02-27 15:03 | ED_ITS ---
HPI - General Adult General Chief complaint: Chest Pain Stated complaint: CP Time Seen by Provider: 02/27/24 14:48 History of Present Illness ED Provider: Dr. Dia HPI narrative: 68 y/o M patient; PMH alcohol use disorder, alcohol induced cirrhosis; presents via EMS from home with report of central non-radiating chest pain for the last one day. Associated with warm feeling in his chest. Otherwise denies: cough/congestion, nausea/vomiting, abdominal pain. The patient states the pain is unchanged by food. He denies prior similar symptoms. He last drank alcohol this morning. He denies smoking or other recreational drug use. Chart review: Patient was last admitted to this hospital from 08/14/2023 - 08/15/2023 for acute hepatic encephalopathy. Related Data Previous Rx's ?Medication ?Instructions ?Recorded lactulose 20 gram/30 mL oral 20 g (30 mL) PO BID #1,200 mL 08/15/23 solution nicotine (polacrilex) 2 mg buccal 2 mg buccal Q2H PRN Anxiety #72 ea 08/15/23 lozenge Allergies Allergy/AdvReac Type Severity Reaction Status Date / Time No Known Allergies Allergy Verified 02/27/24 14:59 [No Known Allergies*] Review of Systems 2 Review of Systems: Yes all other systems are reviewed and are negative PMFSH Past Medical History Attestation statement: The following information was validated with the patient. Source: old records reviewed Medical History Recurrent falls Cataract (lens) fragments in eye following cataract surgery, bilateral Hx of ascites Alcohol dependence Cirrhosis Surgical History History of esophagogastroduodenoscopy (EGD) Surgical history unknown Social History Social History Household Members: Spouse Housing: House Do you presently have visiting nurse or other home services: No Alcohol intake: current Alcohol intake frequency: 3 or more drinks per day Alcohol type: beer Patient Tobacco Use Status: Former Tobacco user Smoked in Last 30 Days: No Use of substances other than those prescribed or required for medical reasons: No Advance Directives: Yes Advance Directives on File: Yes Advance Directives Date on File: 02/21/20 service: No Physical Exam ED Vital Signs: Vital Signs - 24 hr 02/27/24 14:54 02/27/24 15:39 02/27/24 17:38 Temperature 98.0 F 97.8 F 98.0 F Pulse Rate 69 74 76 Respiratory Rate 18 18 16 Blood Pressure 166/95 H 174/99 H 165/99 H Pulse Oximetry 97 95 95 Oxygen Delivery Method Room Air Room Air Room Air 02/27/24 20:24 Temperature 97.4 F Pulse Rate 82 Respiratory Rate 16 Blood Pressure 161/90 H Pulse Oximetry 97 Oxygen Delivery Method Room Air BMI result Body Mass Index 23.6 Patient is afebrile and hemodynamically stable. Const General: cooperative HENMT Head: Yes atraumatic Eyes General: appearance normal, both eyes and all related structures Pupils: Equal, round and reactive pupils present EOM: EOMs intact bilaterally Neck Neck: Yes normal visual inspection, Yes full ROM, Yes supple and No tender Chest Chest palpation & inspection: normal inspection of the chest and normal palpation of entire chest wall Resp Effort & Inspection: normal respiratory effort and able to speak in complete sentences Cardio Rate: regular rate Rhythm: regular rhythm Peripheral pulses: Peripheral pulses 2+ throughout GI Inspection: Yes normal to inspection and No Abdominal wall edema Palpation (GI): Soft to palpation, not firm, nontender, no guarding and not rigid Auscultation: normal bowel sounds Back/Spine/Pelvis Back: No back tenderness Neuro Cranial nerves: Yes Equal, round and reactive pupils present Course Course Course Narrative: Patient is afebrile and hemodynamically stable. Will obtain EKG, CXR, and labs. Reevaluation(s) Reevaluation #1: Labs reviewed. Mild baseline thrombocytopenia. Mild transaminitis. Ethanol 253. Troponin negative. Given patient has had over 24 hours of symptoms, negative troponin indicates ACS is quite unlikely. CXR unremarkable. Less likely pneumonia, pneumothorax, aortic dissection. Will plan to observe for sobriety and then re-assess. Plan: Sign out to Dr. Bishop pending sobriety and re-evaluation Condition: Stable Medical Decision Making Lab Data 02/27/24 15:46 02/27/24 15:46 Labs: Lab Results 02/27/24 Range/Units 15:46 WBC 4.4 L (4.8-10.8) X10*3/uL RBC 5.77 (4.60-5.80) X10*6/uL Hgb 15.7 (14.0-18.0) g/dl Hct 46.6 (42.0-52.0) % MCV 80.8 (80.0-98.0) fL MCH 27.2 (27.0-33.0) pg MCHC 33.7 (31.0-36.0) g/dl RDW 12.4 (11.0-16.0) % Plt Count 131 L D (160-400) X10*3/uL MPV 10.9 (9.4-12.4) fL Immature Gran % (Auto) 0.2 (0.0-0.4) % Neut % (Auto) 25.5 L (45-73) % Lymph % (Auto) 60.6 H (20-40) % [place] % (Auto) 8.0 (2-11) % Eos % (Auto) 4.1 H (0-4) % Baso % (Auto) 1.6 (0-2) % Lymph # (Auto) 2.7 (1.2-4.9) X10*3/uL [place] # (Auto) 0.4 (0.1-1.2) X10*3/uL Eos # (Auto) 0.2 (0.0-0.4) X10*3/uL Baso # (Auto) 0.1 (0.0-0.2) X10*3/uL Abs Immat Gran (auto) 0.01 (0.00-0.03) X10*3/uL Absolute Neuts (auto) 1.1 L (2.0-8.3) x10*3/uL Absolute Nucleated RBC 0.000 (0.0-0.012) X10*3/uL Nucleated RBC % (auto) 0.0 (0.0-0.2) /100WBC Smear Tech's Comments VERIFIED PT 14.2 H (10.9-12.4) SEC INR 1.2 H (0.9-1.1) Sodium 141 (135-145) mmol/L Potassium 4.9 D (3.3-5.1) mmol/L Chloride 104 (96-108) mmol/L Carbon Dioxide 26 (22-29) mmol/L Anion Gap 16 (12-20) BUN 9 (9-16) mg/dL Creatinine 0.73 (0.5-1.4) mg/dL Estim Creat Clear Calc 72.7 Estimated GFR > 60 Random Glucose 111 (60-115) mg/dL Calcium 9.4 D (8.4-10.2) mg/dL Magnesium 1.9 (1.6-2.6) mg/dL Total Bilirubin 1.1 H (0.0-1.0) mg/dL Direct Bilirubin 0.6 H (0.0-0.5) mg/dL AST 153 H (5-37) U/L ALT 93 H (0-40) U/L Alkaline Phosphatase 109 (39-117) U/L Troponin I High Sens < 2.7 (<3.5-35.0) ng/L Total Protein 8.8 H (6.5-8.0) g/dL Albumin 3.8 (3.5-5.0) g/dL Lipase 43 (8-78) U/L Ethyl Alcohol 253 mg/dL Independent Interpretation I performed an independent interpretation of an: EKG Interpretation: NSR 65BPM without ischemic changes, normal intervals Radiology Impression Discussion of test interpretation with radiology: I have reviewed the radiologist's reading. Radiologist Impression: EXAMINATION: XR CHEST CLINICAL INFORMATION: Chest pain COMPARISON: Prior chest August 2023 CT chest July 2023 TECHNIQUE: 2 views of the chest were obtained. FINDINGS: No significant abnormality is noted involving the heart, lungs, mediastinum, bony thorax or soft tissues. XR/XR chest 2V IMPRESSION: Unremarkable examination. Electronically signed by: Freddy Bob MD 02/27/2024 04:40 PM [facility] Discharge Plan Discharge Clinical Impression: Alcohol use disorder, Atypical chest pain, Alcohol intoxication Patient Disposition: Still a Patient Prescriptions: No Action nicotine (polacrilex) 2 mg Lozenge 2 mg buccal Q2H PRN (Reason: Anxiety) Qty: 72 0RF lactulose 20 gram/30 mL Solution 20 g PO BID Qty: 1200 0RF Print Language: Liberian
[2024-02-27 15:39] VITALS: BP 174/99; PULSE 74; RESP 18; TEMP 36.6; O2SAT 95
--- NOTE | 2024-02-27 15:48 | MHC.EDTECH ---
This pct assumed care of Patient at 1500 ,vitals taken ,Patient blood drawn and sent to lab ,Patient was change into hospitals attire and hooked up to satellite project site monitor ,Patient resting quietly in bed ,no apparent distress noted ,Call garcia within Pt reach .
[2024-02-27 15:53] LABS: Basophils Absolute Auto 0.1 X10*3/uL (0.0-0.2); Basophils Percent Auto 1.6 % (0-2); Eosinophils Absolute Auto 0.2 X10*3/uL (0.0-0.4); Eosinophils Percent Auto 4.1 % (0-4); Hematocrit 46.6 % (42.0-52.0); Hemoglobin 15.7 g/dl (14.0-18.0); Imm Gran Abs Auto 0.01 X10*3/uL (0.00-0.03); Imm Gran Pct Auto 0.2 % (0.0-0.4); Lymphocytes Absolute Auto 2.7 X10*3/uL (1.2-4.9); Lymphocytes Percent Auto 60.6 % (20-40); MANUAL DIFF FLAG SCAN; Mean Corpuscular HGB Conc 33.7 g/dl (31.0-36.0); Mean Corpuscular Hemoglobin 27.2 pg (27.0-33.0); Mean Corpuscular Volume 80.8 fL (80.0-98.0); Mean Platelet Volume 10.9 fL (9.4-12.4); Monocytes Absolute Auto 0.4 X10*3/uL (0.1-1.2); Neutrophils Absolute Auto 1.1 x10*3/uL (2.0-8.3); Neutrophils Percent Auto 25.5 % (45-73); Platelet Count 131 X10*3/uL (160-400); Red Blood Count 5.77 X10*6/uL (4.60-5.80); Red Cell Distribution Width 12.4 % (11.0-16.0); SCAN SMEAR FLAG 1; White Blood Count 4.4 X10*3/uL (4.8-10.8)
[2024-02-27 15:59] LABS: INTERNATIONAL NORM RATIO 1.2 (0.9-1.1); Prothrombin Time 14.2 SEC (10.9-12.4)
[2024-02-27 16:06] LABS: Alanine Aminotransferase 93 U/L (0-40); Albumin Level 3.8 g/dL (3.5-5.0); Alkaline Phosphatase 109 U/L (39-117); Anion Gap 16 (12-20); Aspartate Amino Transferase 153 U/L (5-37); Bilirubin Direct 0.6 mg/dL (0.0-0.5); Bilirubin Total 1.1 mg/dL (0.0-1.0); Blood Urea Nitrogen 9 mg/dL (9-16); Calcium 9.4 mg/dL (8.4-10.2); Carbon Dioxide 26 mmol/L (22-29); Chloride 104 mmol/L (96-108); Creatinine Clr Calc Pharmacy 72.7; Estimated Glomerular Filt Rate > 60; Ethanol 253 mg/dL; Glucose Random 111 mg/dL (60-115); Lipase 43 U/L (8-78); Magnesium 1.9 mg/dL (1.6-2.6); Potassium 4.9 mmol/L (3.3-5.1); Sodium 141 mmol/L (135-145); Total Protein 8.8 g/dL (6.5-8.0)
[2024-02-27 16:18] LABS: SLIDE REVIEW VERIFIED
[2024-02-27 16:21] LABS: Troponin-I High Sensitivity < 2.7 ng/L (<3.5-35.0)
[2024-02-27 17:38] VITALS: BP 165/99; PULSE 76; RESP 16; TEMP 36.7; O2SAT 95
--- NOTE | 2024-02-27 18:36 | PC.NURSE ---
steadyon feet to BR earlier. no distress. no tremor, no SOB.
--- NOTE | 2024-02-27 18:40 | MHC.EDTECH ---
Patient had a can of saeed jose martin to drink .
[2024-02-27 20:24] VITALS: BP 161/90; PULSE 82; RESP 16; TEMP 36.3; O2SAT 97
[2024-02-27] MEDS: Acetaminophen 325 MG TABLET 650 MG PO (22:29)
[2024-02-27] MEDS: Magnesium Hydrox/Alum Hydrox 30 ML ORAL.SUSP PO (22:29)
[2024-02-27] MEDS: Lidocaine HCl Viscous 2 % 15 ML SOLUTION 10 ML PO (22:29)
[2024-02-27 22:31] VITALS: BP 165/95; PULSE 88; RESP 16; TEMP 36.2; O2SAT 97
[2024-02-27 22:32] VITALS: BP 161/90; PULSE 82; RESP 16; TEMP 36.3; O2SAT 97
== END 2024-02-27 22:33 | disposition home or self-care (01) ==
PROVIDERS: Emergency Medicine; Emergency Provider Emergency Medicine Emergency Medical Services; PCP Internal Medicine
DX: F10.129 Alcohol abuse with intoxication, unspecified (principal); Y90.8 Blood alcohol level of 240 mg/100 ml or more; R07.89 Other chest pain; D69.6 Thrombocytopenia, unspecified; R74.01 Elevation of levels of liver transaminase levels; K74.60 Unspecified cirrhosis of liver; H26.9 Unspecified cataract; Z91.81 History of falling
CPT/HCPCS: 36415; 71046; 80048; 80076; 80307; 83690; 83735; 84484; 85025; 85610; 93005; 99283; 99284

== ENCOUNTER → 2024-02-27 14:48 | Outpatient (BNV) | payer MEDICARE, MEDICAID, SELFPAY | PROVIDERS: Emergency Provider Emergency Medicine Emergency Medical Services; PCP Internal Medicine; Visit Provider Internal Medicine Cardiovascular Disease | DX: R07.9 Chest pain, unspecified (principal) | CPT/HCPCS: 93010 ==